=== PATIENT | male | born 1930 | race Caucasian/White ===

== ENCOUNTER 2018-10-27 12:43 | Inpatient (IN) | payer OTHER | END 2018-10-29 18:14 | disposition home or self-care (01) | LOC: JER 12:43 → JERBED 17:47 → J6S 20:53 ==

== ENCOUNTER 2018-12-16 21:11 | Emergency (ER) | payer OTHER ==
--- NOTE | 2018-12-16 21:19 | PDOC ---
Rapid Medical Evaluation Time Seen by Provider: 12/16/18 21:17 Medical Evaluation: Allergies Allergy/AdvReac Type Severity Reaction Status Date / Time No Known Allergies Allergy Verified 10/27/18 12:55 12/16/18 21:17 HPI:Hit in R eye with a piece of wood PE: R eye injected and swollen ORDES: CT for possible globe rupture Discharge Disposition - Diagnosis Right eye injury - Referrals Referrals: Iván Rodriguez MD [Primary Care Provider] - - Patient Instructions - Post Discharge Activity
[2018-12-16 21:20] VITALS: BMI 24.1
--- NOTE | 2018-12-16 23:02 | PDOC ---
*Physical Exam - Vital Signs Last Vital Signs Temp Pulse Resp BP Pulse Ox 98.1 F 89 18 161/80 95 12/16/18 21:17 12/16/18 21:17 12/16/18 21:17 12/16/18 21:17 12/16/18 21:17 Medical Decision Making - Medical Decision Making 12/16/18 23:02 Patient seen by the advanced practice provider under my direct supervision. Ancillary testing reviewed as necessary. I agree with plan as outlined by the advanced practice provider. Discharge - Discharge Information Problems reviewed: Yes Clinical Impression/Diagnosis: Blunt trauma, right eye Qualifiers: Encounter type: initial encounter Qualified Code(s): S05.8X1A - Other injuries of right eye and orbit, initial encounter Condition: Fair Disposition: TRANSFER ACUTE CARE/OTHER HOSP - Follow up/Referral Referrals: Iván Rodriguez MD [Primary Care Provider] - - Patient Discharge Instructions - Post Discharge Activity
[2018-12-16] MEDS ORDERED: DIPHTH,PERTUSS(ACELL),TET 0.5 ML DISP.SYRIN IM ONE (23:17)
--- NOTE | 2018-12-16 23:26 | PDOC ---
History of Present Illness - General Chief Complaint: Eye Problem Stated Complaint: RIGHT EYE INJ Time Seen by Provider: 12/16/18 21:17 History Source: Patient, Family (Daughter) Exam Limitations: No Limitations - History of Present Illness Initial Comments: 12/16/18 23:20 HISTORY OF PRESENT ILLNESS: 77-year-old male with past medical history of hypertension, hypercholesterolemia, IDDM of presents emergency department for evaluation of right eye pain status post direct trauma sustained on 12/15. Patient states he was walking around his house where there was some composite decking piled up. He stepped on a piece of the composite decking causing it to launch under the piece of decking striking him in the right eye. Patient denies any floaters, vision loss, blurry vision. Patient concerned with increased pain and appearance of his eye which reveals bloody sclera. Unknown tetanus. No recent travel or sick contacts. PAST MEDICAL HISTORY: see HPI SURGICAL HISTORY: Denies ALLERGIES: No known drug allergies REVIEW OF SYSTEMS General/Constitutional: Denies fever or chills. Denies weakness, weight change. HEENT: see HPI Cardiovascular: Denies chest pain or shortness of breath. Respiratory: Denies cough, wheezing, or hemoptysis. Gastrointestinal: Denies nausea, vomiting, diarrhea or constipation. Denies rectal bleeding. Genitourinary: Denies dysuria, frequency, or change in urination. Musculoskeletal: Denies joint or muscle swelling or pain. Denies neck or back pain. Skin and breasts: Denies rash or easy bruising. Neurologic: Denies headache, vertigo, loss of consciousness, or loss of sensation. Psychiatric: Denies depression or anxiety. Endocrine: Denies increased thirst. Denies abnormal weight change. Hematologic/Lymphatic: Denies anemia, easy bleeding, or history of blood clots. Allergic/Immunologic: Denies hives or skin allergy. Denies latex allergy. PHYSICAL EXAM General Appearance: Well-appearing, appropriately dressed. No apparent distress , no intoxication. HEENT: EOMI, PERRLA, normal ENT inspection, normal voice, TMs normal, pharynx normal. No conjunctival pallor. No photophobia. No bony tenderness, crepitus or step-offs present to orbits. Red reflex is unremarkable bilaterally. No obvious extrusion of intraocular contents present. Right eye anterior chamber appears normal. No hyphema is noted. Visual acuity 20/20 right eye, left eye, both eyes. Swelling and hematoma present to the right sclera. Fluorescein staining deferred until after results of CAT scan have been obtained. Neck: Supple. Trachea midline. No tenderness, rigidity, carotid bruit, stridor , lymphadenopathy, or thyromegaly. Respiratory/Chest: Lungs CTAB. No shortness of breath, chest tenderness, respiratory distress, accessory muscle use. No crackles, rales, rhonchi, stridor , wheezing, dullness Cardiovascular: RRR. S1, S2. No JVD, murmur, bradycardia, tachycardia. Vascular Pulses: Dorsalis-Pedis (R): 2+, Dorsalis-Pedis (L): 2+ Neurologic: work environment safety inspector II-XII intact. Fully oriented, alert. Appropriate mood/affect. Motor strength 5/5. No appreciable EOM palsy, facial droop or sensory deficit. Is this a multiple visit Asthma Patient?: No Past History - Past Medical History Allergies/Adverse Reactions: Allergies Allergy/AdvReac Type Severity Reaction Status Date / Time No Known Allergies Allergy Verified 12/16/18 21:20 Home Medications: Ambulatory Orders Amlodipine Besylate 5 mg PO DAILY 10/27/18 Atorvastatin Ca [Lipitor] 80 mg PO HS 10/27/18 Cilostazol 100 mg PO BID 10/27/18 Clopidogrel Bisulfate [Clopidogrel] 75 mg PO DAILY 10/27/18 Finasteride 5 mg PO DAILY 10/27/18 Gabapentin 300 mg PO TID 10/27/18 Insulin Detemir [Levemir Flextouch] 50 unit SQ BID 10/27/18 Tamsulosin HCl 0.8 mg PO DAILY 10/27/18 Metoprolol Tartrate 50 mg PO BID 10/28/18 Cefuroxime Axetil [Ceftin -] 250 mg PO BID #10 tablet 10/29/18 COPD: No Diabetes: Yes HTN: Yes Hypercholesterolemia: Yes - Immunization History Immunization Up to Date: Yes - Psycho Social/Smoking Cessation Hx Smoking History: Never smoked Have you smoked in the past 12 months: No Hx Alcohol Use: No Drug/Substance Use Hx: No Substance Use Type: None Hx Substance Use Treatment: No *Physical Exam - Vital Signs Last Vital Signs Temp Pulse Resp BP Pulse Ox 98.1 F 89 18 161/80 95 12/16/18 21:17 12/16/18 21:17 12/16/18 21:17 12/16/18 21:17 12/16/18 21:17 Medical Decision Making - Medical Decision Making 12/16/18 23:26 A/P: 87-year-old male for evaluation of right eye pain status post direct trauma Differential diagnosis includes but is not limited to-globe rupture, corneal abrasion, subconjunctival hemorrhage, CAT scan per rapid medical evaluation Fluorescein staining deferred until after results of CAT scan have been received [employer] Patient and family are made aware potential need for emergent ophthalmologic evaluation at tertiary hospital pending results of CT scan. 12/17/18 00:12 CT of the facial bones as read by Dr. Shaffer: Both orbits are intact. Both globes are intact. Air is present along the superior margin of the right eye globe within the extraconal compartment. Ophthalmology evaluation is needed. I will contact [facility] for ophthalmologic evaluation and transfer. Spoke with Dr. serna of ophthalmology a wishes to [facility] with exception patient transferred to the emergency department. Patient was accepted 12/17/18 at 12 AM. The receiving facility will arrange transportation. Patient is aware of pending transfer and need for ophthalmologic evaluation. Discharge - Discharge Information Problems reviewed: Yes Clinical Impression/Diagnosis: Blunt trauma, right eye Qualifiers: Encounter type: initial encounter Qualified Code(s): S05.8X1A - Other injuries of right eye and orbit, initial encounter Condition: Fair Disposition: TRANSFER ACUTE CARE/OTHER HOSP - Admission No - Follow up/Referral Referrals: Iván Rodriguez MD [Primary Care Provider] - - Patient Discharge Instructions - Post Discharge Activity - Transfer to Acute Care Facility Receiving Facility Name: [facility] Accepting Physician:: Ubaldo @[address] [place] [address]
[2018-12-17 01:21] VITALS: BP 147/59; PULSE 77; TEMP 98.2
== END 2018-12-17 00:45 | disposition short-term general hospital (02) ==
LOC: JER 21:11
PROC: 3E0234Z Introduction of Serum, Toxoid and Vaccine into Muscle, Percutaneous Approach (ICD-10-PCS; principal; 2018-12-16)
DX: S05.8X1A Other injuries of right eye and orbit, initial encounter (principal); W22.8XXA Striking against or struck by other objects, initial encounter; Y93.89 Activity, other specified; Y92.018 Other place in single-family (private) house as the place of occurrence of the external cause; Y99.8 Other external cause status; I10 Essential (primary) hypertension; E78.00 Pure hypercholesterolemia, unspecified; E11.9 Type 2 diabetes mellitus without complications; Z79.4 Long term (current) use of insulin
CPT/HCPCS: 70486-TC; 90715; 99283-25

== ENCOUNTER 2019-04-03 13:20 | Inpatient (IN) | payer OTHER ==
[2019-04-03] MEDS ORDERED: ACETAMINOPHEN 1000 MG/100 ML VIAL (NON FORMULARY) IVPB ONE (14:28)
[2019-04-03] MEDS ORDERED: ACETAMINOPHEN 325 MG TABLET (FP) ONE (14:29)
--- NOTE | 2019-04-03 14:32 | PDOC ---
History of Present Illness - General Chief Complaint: Pain Stated Complaint: WEAK/PAIN/UTI Time Seen by Provider: 04/03/19 14:15 - History of Present Illness Initial Comments: 04/03/19 15:12 The patient is an 88 year old male with a history of HTN, HLD, DM, Recurrent UTIs who presents for evaluation of dysuria and abdominal pain. The patient is accompanied by family who assist in providing the history. They report that the patient is currently being treated for an upper lobe pneumonia with levaquin that was diagnosed 1 week ago. They note that over the past 1-2 days, the patient has been experiencing worsening dysuria and lower abdominal pain similar to prior UTIs prompting his presentation to the ED for further evaluation. They otherwise deny fevers, chills, chest pain, nausea, vomiting, or changes with urination or bowel movements. Past History - Past Medical History Allergies/Adverse Reactions: Allergies Allergy/AdvReac Type Severity Reaction Status Date / Time No Known Allergies Allergy Verified 12/16/18 21:20 Home Medications: Ambulatory Orders Amlodipine Besylate 5 mg PO DAILY 10/27/18 Atorvastatin Ca [Lipitor] 80 mg PO HS 10/27/18 Cilostazol 100 mg PO BID 10/27/18 Clopidogrel Bisulfate [Clopidogrel] 75 mg PO DAILY 10/27/18 Finasteride 5 mg PO DAILY 10/27/18 Gabapentin 300 mg PO TID 10/27/18 Insulin Detemir [Levemir Flextouch] 15 unit SQ AM 10/27/18 Tamsulosin HCl 0.4 mg PO BID 10/27/18 Metoprolol Tartrate 50 mg PO BID 10/28/18 Insulin Detemir [Levemir Flextouch] 25 unit SQ HS 04/04/19 COPD: No Diabetes: Yes HTN: Yes Hypercholesterolemia: Yes - Immunization History Immunization Up to Date: Yes - Psycho Social/Smoking Cessation Hx Smoking History: Never smoked Have you smoked in the past 12 months: No Information on smoking cessation initiated: No Hx Alcohol Use: No Drug/Substance Use Hx: No Substance Use Type: None Hx Substance Use Treatment: No Review of Systems - Review of Systems Comments:: 04/03/19 15:14 Constitutional: No fevers, chills, fatigue, malaise HEENT: No Rhinorrhea, nasal congestion, visual changes Cardiovascular: No chest pain, syncope, palpitations, lightheadedness Respiratory: Cough, No SOB, Hemoptysis, Gastrointestinal: Lower abdominal pain. No Nausea, Vomiting, Constipation, Diarrhea, Melena Genitourinary: Dysuria. No Frequency, Urgency, Hesitancy, Hematuria, Flank pain Musculoskeletal: No Myalgia, arthralgia Skin: No rashes, itching, bruising, pallor Neurologic: No Headache, Dizziness, Numbness, Weakness, or Tingling Psychiatric: No Hallucinations. No SI or HI *Physical Exam - Vital Signs Last Vital Signs Temp Pulse Resp BP Pulse Ox 98.5 F 117 H 16 132/78 95 04/03/19 13:34 04/03/19 13:34 04/03/19 13:34 04/03/19 13:34 04/03/19 13:34 - Physical Exam 04/03/19 15:15 General Appearance: Nourished. No Apparent Distress HEENT: No Pharyngeal Erythema, Tonsillar Exudate, Tonsillar Erythema Neck: No Cervical Lymphadenopathy Respiratory/Chest: Bilateraly rhonchi noted on exam. No Crackles, Rales, Wheezing Cardiovascular: Regular Rhythm, Regular Rate. No Murmur, Gallops, Rubs Gastrointestinal/Abdominal: Normal Bowel Sounds, Soft. Suprapubic tenderness to palpation on exam. No Guarding, Rebound, Musculoskeletal: No CVA Tenderness Extremity: Normal Capillary Refill Integumentary: Normal Color, Dry, Warm Neurologic: Fully Oriented, Alert, Normal Mood/Affect, Normal Response ED Treatment Course - LABORATORY CBC & Chemistry Diagram: 04/04/19 06:00 04/04/19 06:00 Medical Decision Making - Medical Decision Making 04/03/19 15:16 The patient is an 88 year old male with a history of HTN, HLD, DM, Recurrent UTIs who presents for evaluation of dysuria and abdominal pain. Given the patient's history and physical exam, we will obtain a cbc, cmp, ua, chest plain film, influenza swab, urine culture to evaluate further. We will treat with tylenol and continue to monitor and reassess while here in the ED. 04/03/19 18:23 CBC demonstrated a wbc to 11. CMP was unremarkable. Chest plain film demonstrated right mid lobe and left lower lobe changes as read by our radiologist. The patient reports persistent cough and shortness of breath despite treatment with levaquin. It is likely the patient has failed outpatient management of his pneumonia and he will require admission for further monitoring and management. Discharge - Discharge Information Problems reviewed: Yes Clinical Impression/Diagnosis: Pneumonia Qualifiers: Pneumonia type: due to unspecified organism Laterality: unspecified laterality Lung location: unspecified part of lung Qualified Code(s): J18.9 - Pneumonia, unspecified organism UTI (urinary tract infection) Qualifiers: Urinary tract infection type: site unspecified Hematuria presence: without hematuria Qualified Code(s): N39.0 - Urinary tract infection, site not specified Condition: Stable - Admission Yes - Follow up/Referral - Patient Discharge Instructions - Post Discharge Activity
[2019-04-03] MEDS ORDERED: ACETAMINOPHEN INJECTION 100 ML IVPB ONE (14:34)
[2019-04-03] MEDS ORDERED: ALBUTEROL SO4 2.5/IPRATROPIUM 0.5 INH SOL 3 ML VIAL.NEB. NEB ONE (15:35)
[2019-04-03 16:00] LABS: BASO % 0.2 % (0-2.0); EOS % 0.7 % (0-4.5); HEMATOCRIT 34.1 % (35.4-49); HEMOGLOBIN 11.2 GM/dL (11.7-16.9); LYMPH % 6.6 % (8-40); MCH 30.6 pg (25.7-33.7); MCHC 32.8 g/dl (32.0-35.9); MEAN CELL VOLUME 93.2 fl (80-96); MEAN PLT VOLUME 7.1 fl (7.5-11.1); MONO % 6.4 % (3.8-10.2); NEUT % 86.1 % (42.8-82.8); PLATELET COUNT 473 K/MM3 (134-434); RBC 3.66 M/mm3 (4.00-5.60); RDW 13.4 % (11.9-15.9); WHITE BLOOD COUNT 11.5 K/mm3 (4.0-10.0)
[2019-04-03 16:24] LABS: ALBUMIN 2.2 g/dl (3.4-5.0); BILIRUBIN,TOTAL 0.4 mg/dL (0.2-1); BLOOD UREA NITROGEN 33.9 mg/dL (7-18); CALCIUM 8.5 mg/dL (8.5-10.1); CREATININE 1.9 mg/dL (0.55-1.3); POTASSIUM 3.9 mmol/L (3.5-5.1); TOT PROT 7.4 g/dl (6.4-8.2)
[2019-04-03] MEDS ORDERED: AZITHROMYCIN IVPB 500 MG in DEXTROSE 5%-WATER - 250 ML IVPB ONE (16:28)
[2019-04-03] MEDS ORDERED: CEFTRIAXONE 1 GM in DEXTROSE 5%-WATER - 50 ML IVPB ONE (16:28)
--- NOTE | 2019-04-03 16:34 | PDOC ---
Documentation entered by Virginia Summers SCRIBE, acting as scribe for Ally Narvaez MD. Ally Narvaez MD: This documentation has been prepared by the Kristopher benson Xhesika, SCRIBE, under my direction and personally reviewed by me in its entirety. I confirm that the documentation accurately reflects all work, treatment, procedures, and medical decision making performed by me. Attending Attestation - Resident Resident Name: Curry Arambula - HPI HPI: 04/03/19 15:35 The patient is an 88 year old male with a significant PMH of HTN, HLD, DM, Recurrent UTIs who presents to the emergency department for 2 days of dysuria, abdominal pain and cough with phlegm. Pt is Mont[place] speaking, however, family at bedside providing history. Family states the patient is currently on abx for R Lung pneumonia that was diagnosed at urgent care 03/26/18. Pt states his symptoms are similar to his past UTIs. The patient denies chest pain, shortness of breath, headache and dizziness. Denies fever, chills, vomiting, diarrhea and constipation. Denies frequency, urgency and hematuria. Allergies: NKDA - Physicial Exam PE: 04/03/19 15:43 Agree with resident exam. Patient is alert and oriented and in no acute distress. CV: rrr no murmur. Pulm: + diffuse rhonchi. speaking in complete sentences. Abdomen: soft, non tender, non distended, without guarding or rebound. 04/03/19 16:20 - Medical Decision Making 04/03/19 16:31 Pt presents to the ED complaining of dysuria and continued cough and shortness of breath after treated with levaquin for PNA. + PNA on CXR. Will admit and treat with IV antibiotics secondary to failure of outpatient treatment. Will check UA to evaluate for UTI.
[2019-04-03] MEDS ORDERED: CEFTRIAXONE 1 GM/50 ML BAG ONE (17:05)
[2019-04-03] MEDS ORDERED: AZITHROMYCIN IVPB 500 MG/250 ML BAG IVPB ONE (17:07)
[2019-04-03] MEDS ORDERED: ALBUTEROL SO4 0.5 % INH SOLN 2.5 MG/0.5 ML VIAL.NEB. NEB PRN (19:54)
[2019-04-03 20:31] LABS: EPI CELLS 2.6 /HPF (0-5/HPF); HYALINE CASTS 6 /lpf (0-8); PH,URINE 5.5 (5.0-8.0); URINE APPEARANCE TURBID; URINE BACTERIA 5.9 /hpf (NEGATIVE); URINE BILIRUBIN NEGATIVE (NEGATIVE); URINE COLOR YELLOW; URINE GLUCOSE (UA) 1+ (NEGATIVE); URINE KETONE NEGATIVE (NEGATIVE); URINE LEUK ESTERASE 3+ (NEGATIVE); URINE NITRITE NEGATIVE (NEGATIVE); URINE PROTEIN 3+ (NEGATIVE); URINE RBC 35 /hpf (0-4); URINE UROBILINOGEN 0.2 mg/dL (0.2-1.0); URINE WBC 1195 /hpf (0-5)
--- NOTE | 2019-04-03 22:37 | HP ---
CHIEF COMPLAINT: abdominal pain, cough PCP: HISTORY OF PRESENT ILLNESS: The patient is an 88 yo m w/ PMH HTN, HLD, DM, Recurrent UTIs who comes into the ED c/o dysuria and abdominal pain. The history was collected with the aid of family at bedside. Patient states that he was diagnosed with an upper lobe pneumonia approx. 1 weeks ago and has been on daily Levaquin since then. Over the past 2 days, the patient describes gradually worsening lower abdominal pain and dysuria which is consistent with his episodes of UTI. This is accompanied with persistence of his cough despite 1 week of levaquin. patient denies fevers , chills, chest pain, nausea, vomiting, or changes with urination or bowel movements. In the ED, the patient was afebrile and hemodynamically stable. A CXR demonstrated a pneumonia. UA was indicative of UTI Recent Travel: none PAST MEDICAL HISTORY: see hpi PAST SURGICAL HISTORY: Social History: Smoking: denies Alcohol: denies Drugs: denies Allergies No Known Allergies Allergy (Verified 12/16/18 21:20) HOME MEDICATIONS: Home Medications Medication Instructions Recorded Amlodipine Besylate 5 mg PO DAILY 10/27/18 Atorvastatin Ca [Lipitor] 80 mg PO HS 10/27/18 Cilostazol 100 mg PO BID 10/27/18 Clopidogrel Bisulfate [Clopidogrel] 75 mg PO DAILY 10/27/18 Finasteride 5 mg PO DAILY 10/27/18 Gabapentin 300 mg PO TID 10/27/18 Insulin Detemir [Levemir Flextouch] 50 unit SQ BID 10/27/18 Tamsulosin HCl 0.8 mg PO DAILY 10/27/18 Metoprolol Tartrate 50 mg PO BID 10/28/18 Cefuroxime Axetil [Ceftin -] 250 mg PO BID #10 tablet 10/29/18 REVIEW OF SYSTEMS CONSTITUTIONAL: Absent: fever, chills, diaphoresis, generalized weakness, malaise, loss of appetite, weight change HEENT: Absent: rhinorrhea, nasal congestion, throat pain, throat swelling, difficulty swallowing, mouth swelling, ear pain, eye pain, visual changes CARDIOVASCULAR: Absent: chest pain, syncope, palpitations, irregular heart rate, lightheadedness , peripheral edema RESPIRATORY: Absent: cough, shortness of breath, dyspnea with exertion, orthopnea, wheezing, stridor, hemoptysis GASTROINTESTINAL: Absent: abdominal distension, nausea, vomiting, diarrhea, constipation, melena, hematochezia GENITOURINARY: Absent: urgency, hematuria, flank pain MUSCULOSKELETAL: Absent: myalgia, arthralgia, joint swelling, back pain, neck pain SKIN: Absent: rash, itching, pallor HEMATOLOGIC/IMMUNOLOGIC: Absent: easy bleeding, easy bruising, lymphadenopathy, frequent infections ENDOCRINE: Absent: unexplained weight gain, unexplained weight loss, heat intolerance, cold intolerance NEUROLOGIC: Absent: headache, focal weakness or paresthesias, dizziness, unsteady gait, seizure, mental status changes, bladder or bowel incontinence PSYCHIATRIC: Absent: anxiety, depression, suicidal or homicidal ideation, hallucinations. PHYSICAL EXAMINATION Vital Signs - 24 hr 04/03/19 13:34 Temperature 98.5 F Pulse Rate 117 H Respiratory 16 Rate Blood Pressure 132/78 O2 Sat by Pulse 95 Oximetry (%) GENERAL: Awake, alert, and fully oriented, in no acute distress. HEAD: Normal with no signs of trauma. NECK: Normal range of motion, supple without lymphadenopathy, JVD, or masses. LUNGS: Breath sounds equal, clear to auscultation bilaterally. No wheezes, and no crackles. No accessory muscle use. HEART: Regular rate and rhythm, normal S1 and S2 without murmur, rub or gallop. ABDOMEN: Soft, not distended, normoactive bowel sounds. Patient tender to palpation in the lower quadrants as well as in the suprapubic region LOWER EXTREMITIES: 2+ pulses, warm, well-perfused. No calf tenderness. No peripheral edema. NEUROLOGICAL: Cranial nerves II-X intact. Normal speech. SKIN: Warm, dry, normal turgor, no rashes or lesions noted, normal capillary refill. Laboratory Results - last 24 hr 04/03/19 04/03/19 04/03/19 15:00 15:00 20:15 WBC 11.5 H RBC 3.66 L Hgb 11.2 L Hct 34.1 L MCV 93.2 MCH 30.6 MCHC 32.8 RDW 13.4 Plt Count 473 H D MPV 7.1 L Absolute Neuts (auto) 9.9 H Neutrophils % 86.1 H Lymphocytes % 6.6 L D Monocytes % 6.4 Eosinophils % 0.7 Basophils % 0.2 Nucleated RBC % 0 Sodium 136 Potassium 3.9 Chloride 108 H Carbon Dioxide 19 L Anion Gap 9 BUN 33.9 H Creatinine 1.9 H Est GFR (CKD-EPI)AfAm 36.19 Est GFR (CKD-EPI)NonAf 31.23 Random Glucose 319 H Calcium 8.5 Total Bilirubin 0.4 AST 20 ALT 23 Alkaline Phosphatase 154 H Total Protein 7.4 Albumin 2.2 L Lipase 206 Urine Color Yellow Urine Appearance Turbid Urine pH 5.5 Ur Specific [place] 1.013 Urine Protein 3+ H Urine Glucose (UA) 1+ H Urine Ketones Negative Urine Blood 2+ H Urine Nitrite Negative Urine Bilirubin Negative Urine Urobilinogen 0.2 Ur Leukocyte Esterase 3+ H Urine WBC (Auto) 1195 Urine RBC (Auto) 35 Urine Casts (Auto) 6 U Epithel Cells (Auto) 2.6 Urine Bacteria (Auto) 5.9 Influenza A (Rapid) Influenza B (Rapid) 04/03/19 20:15 WBC RBC Hgb Hct MCV MCH MCHC RDW Plt Count MPV Absolute Neuts (auto) Neutrophils % Lymphocytes % Monocytes % Eosinophils % Basophils % Nucleated RBC % Sodium Potassium Chloride Carbon Dioxide Anion Gap BUN Creatinine Est GFR (CKD-EPI)AfAm Est GFR (CKD-EPI)NonAf Random Glucose Calcium Total Bilirubin AST ALT Alkaline Phosphatase Total Protein Albumin Lipase Urine Color Urine Appearance Urine pH Ur Specific [place] Urine Protein Urine Glucose (UA) Urine Ketones Urine Blood Urine Nitrite Urine Bilirubin Urine Urobilinogen Ur Leukocyte Esterase Urine WBC (Auto) Urine RBC (Auto) Urine Casts (Auto) U Epithel Cells (Auto) Urine Bacteria (Auto) Influenza A (Rapid) Negative Influenza B (Rapid) Negative ASSESSMENT/PLAN: The patient is an 88 yo m w/ PMH HTN, HLD, DM, Recurrent UTIs who comes into the ED c/o dysuria and abdominal pain. #persistent cough despite outpatient treatment -s/p 1week levaquin -patient not improving on above treatment, will broaden coverage with cefepime 2g bid and vancomycin 1g daily -ID consult -sputum culture -urine for pna antigens -blood culture -ct chest r/o empyema/abscess #lower abdominal pain 2/2 uti vs acute prostatitis -patient w/ dysuria -UA shows UTI -abx as above -urology consult -bladder scan #DM -BGM ACHS -ISS ACHS #FEN -no fuids indicated -lytes wnl -DM diet #prophy -HSQ #Dispo -admit med surg Visit type - Emergency Visit Emergency Visit: Yes ED Registration Date: 04/03/19 Care time: The patient presented to the Emergency Department on the above date and was hospitalized for further evaluation of their emergent condition. - New Patient This patient is new to me today: Yes Date on this admission: 04/04/19 - Critical Care Critical Care patient: No ATTENDING PHYSICIAN STATEMENT I saw and evaluated the patient. I reviewed the resident's note and discussed the case with the resident. I agree with the resident's findings and plan as documented. SUBJECTIVE: OBJECTIVE: ASSESSMENT AND PLAN:
[2019-04-03] MEDS ORDERED: CEFEPIME HCL/D5W 1 GM/50 ML BAG IVPB SCH (22:45)
[2019-04-03] MEDS ORDERED: CEFAZOLIN 1 GM in DEXTROSE 5%-WATER - 50 ML IVPB SCH (22:45)
[2019-04-03] MEDS ORDERED: VANCOMYCIN 1 GRAM (PRE-DOCKED) 1,000 MG/250 ML BAG IVPB ONE (22:45)
--- NOTE | 2019-04-03 23:12 | PN ---
Teaching Attending Note Name of Resident: Popeye Marrufo ATTENDING PHYSICIAN STATEMENT I saw and evaluated the patient. I reviewed the resident's note and discussed the case with the resident. I agree with the resident's findings and plan as documented. SUBJECTIVE: 88 year old male with a significant PMH of BPH, HTN, HLD, DM, Recurrent UTIs Presents complaining of 2 days of dysuria, abdominal pain/Suprapubic pain, cough with phlegm. Patient is undergoing 5 days of Levaquin treatment for right lung pneumonia, diagnosed at urgent care on 03/26/2019. Respiratory symptoms have not improved fully after Levaquin treatment. OBJECTIVE: Last Vital Signs Temp Pulse Resp BP Pulse Ox 98.5 F 83 18 155/72 98 04/03/19 22:42 04/03/19 22:42 04/03/19 22:42 04/03/19 22:42 04/03/19 22:42 GENERAL: Well developed, well nourished. Awake and alert. No acute distress. HEENT: Normocephalic, atraumatic. PERRLA, EOMI. No conjunctival pallor. Sclera are non- icteric. Moist mucous membranes. Oropharynx is clear. NECK: Supple. Full ROM. No JVD. Carotid pulses 2+ and symmetric, without bruits. No thyromegaly. No lymphadenopathy. CARDIOVASCULAR: Regular rate and rhythm. No murmurs, rubs, or gallops. Distal pulses are 2+ and symmetric. PULMONARY: No evidence of respiratory distress. Lungs clear to auscultation bilaterally. No wheezing, rales or rhonchi. ABDOMINAL: Soft. Non-tender. Non-distended. No rebound or guarding. No organomegaly. Normoactive bowel sounds. MUSCULOSKELETAL Normal range of motion at all joints. No bony deformities or tenderness. No CVA tenderness. EXTREMITIES: No cyanosis. No clubbing. No edema. No calf tenderness. SKIN: Warm and dry. Normal capillary refill. No rashes. No jaundice. PSYCHIATRIC: Cooperative. Good eye contact. Appropriate mood and affect. Abnormal Lab Results 04/03/19 04/03/19 04/03/19 15:00 15:00 20:15 WBC 11.5 H RBC 3.66 L Hgb 11.2 L Hct 34.1 L Plt Count 473 H D MPV 7.1 L Absolute Neuts (auto) 9.9 H Neutrophils % 86.1 H Lymphocytes % 6.6 L D Chloride 108 H Carbon Dioxide 19 L BUN 33.9 H Creatinine 1.9 H Random Glucose 319 H Alkaline Phosphatase 154 H Albumin 2.2 L Urine Protein 3+ H Urine Glucose (UA) 1+ H Urine Blood 2+ H Ur Leukocyte Esterase 3+ H Imaging studies reviewed ASSESSMENT AND PLAN: 88-year-old man with persistent pneumonia despite Levaquin treatment, suspect possible antibiotic failure versus resistant organisms at this time and would upgrade antibiotic coverage from Levaquin to vancomycin and cefepime. ADILENE on CKD. Complicated UTI suspect may be cystitis versus prostatitis in this patient with history of BPH and frequent UTIs. Cefepime would likely cover UTI as well as with pneumonia.History of significant BPH likely may be culprit for frequent UTIs. Would obtain pre-and post void bladder scan at this time. Admit to [facility] Urine culture Blood cultures x2 Urine Legionella antigen Sputum culture Chest CT without contrast to evaluate for structural chest abnormalities which might explain antibiotic failure such as a loculated fluid collection Cefepime 1 g IV every 12 Vancomycin 1 g IV stat Random vancomycin level in a.m. Supplemental oxygen via nasal cannula as needed Respiratory watch infectious disease consultation Renal sonogram I's and O's Daily weights Calculate Fena Avoid unnecessary nephrotoxins such as NSAIDs and contrast for CT #Abdominal pain with elevated alk phosshould rule out cholecystitis Right upper quadrant ultrasound to rule out cholecystitis #Severe hypoalbuminemia #Thrombocytosissuspect reactive #Anemia #Diabetes mellitus with severely uncontrolled hyperglycemia NovoLog sliding scale A1c Basal insulin #DVT prophylaxisheparin subcutaneously
[2019-04-04] MEDS ORDERED: guaiFENesin/D-M SUGAR-FREE/ACLHOL-FREE 118 ML BOTTLE PO PRN (03:21)
[2019-04-04] MEDS: ACETAMINOPHEN 325 MG TABLET (FP) PO PRN ×2 (04:11→18:41)
[2019-04-04] MEDS ORDERED: guaiFENesin 200 MG/10 ML 10 ML UNIT-DOSE CUPS PO PRN (04:27)
[2019-04-04] MEDS ORDERED: INSULIN SLIDING SCALE (NOVOLOG) 1 VIAL SQ SCH (07:00)
[2019-04-04] MEDS: HEPARIN NA (PORCINE) 5,000 UNITS/ML 1ML VIAL SQ SCH ×3 (07:10→22:43)
[2019-04-04 07:24] LABS: ALBUMIN 1.9 g/dl (3.4-5.0); BILIRUBIN,TOTAL 0.5 mg/dL (0.2-1); BLOOD UREA NITROGEN 28.8 mg/dL (7-18); CALCIUM 8.1 mg/dL (8.5-10.1); CREATININE 1.8 mg/dL (0.55-1.3); MAGNESIUM 1.8 mg/dL (1.8-2.4); PHOSPHOROUS 2.8 mg/dL (2.5-4.9); POTASSIUM 3.8 mmol/L (3.5-5.1); TOT PROT 6.6 g/dl (6.4-8.2)
[2019-04-04 07:38] LABS: HEMATOCRIT 30.3 % (35.4-49); HEMOGLOBIN 10.3 GM/dL (11.7-16.9); MCH 31.1 pg (25.7-33.7); MCHC 33.9 g/dl (32.0-35.9); MEAN CELL VOLUME 91.8 fl (80-96); MEAN PLT VOLUME 6.9 fl (7.5-11.1); PLATELET COUNT 408 K/MM3 (134-434); WHITE BLOOD COUNT 7.7 K/mm3 (4.0-10.0)
[2019-04-04 07:42] LABS: INR 1.43 (0.83-1.09); PROTHROMBIN TIME (PATIENT) 16.9 SEC (9.7-13.0)
--- NOTE | 2019-04-04 09:23 | PN ---
Physical Exam: SUBJECTIVE: Patient seen and examined, pt still c/o dysuria,moist cough,sob with exertion, generalized abdominal pain, denies cp,palpitations,N/V/D or hematuria. OBJECTIVE: Vital Signs Period Temp Pulse Resp BP Sys/Riggs Pulse Ox Last 24 Hr 97.8 F-98.5 F 83-117 16-20 132-163/72-80 95-98 GENERAL: The patient is awake, alert, and fully oriented, in no acute distress. HEAD: Normal with no signs of trauma. EYES: PERRL, extraocular movements intact, sclera anicteric, conjunctiva clear. No ptosis. ENT: Ears normal, nares patent, oropharynx clear without exudates, moist mucous membranes.Swelling left side of the face persist, mild- tenderness, no throat exudate seen NECK: Trachea midline, full range of motion, supple. LUNGS: Breath sounds equal, rales/ ronchi, no wheezing no accessory muscle use. HEART: Regular rate and rhythm, S1, S2 without murmur, rub or gallop. ABDOMEN: mild epigastric tenderness,Soft, nondistended, normoactive bowel sounds , no guarding, no rebound, no hepatosplenomegaly, no masses. EXTREMITIES: 2+ pulses, warm, well-perfused, no edema. NEUROLOGICAL: Cranial nerves II through XII grossly intact. Normal speech, gait not observed. PSYCH: Normal mood, normal affect. SKIN: Warm, dry, normal turgor, no rashes or lesions noted Laboratory Results - last 24 hr 04/03/19 04/03/19 04/03/19 15:00 15:00 20:15 WBC 11.5 H RBC 3.66 L Hgb 11.2 L Hct 34.1 L MCV 93.2 MCH 30.6 MCHC 32.8 RDW 13.4 Plt Count 473 H D MPV 7.1 L Absolute Neuts (auto) 9.9 H Neutrophils % 86.1 H Lymphocytes % 6.6 L D Monocytes % 6.4 Eosinophils % 0.7 Basophils % 0.2 Nucleated RBC % 0 PT with INR INR Sodium 136 Potassium 3.9 Chloride 108 H Carbon Dioxide 19 L Anion Gap 9 BUN 33.9 H Creatinine 1.9 H Est GFR (CKD-EPI)AfAm 36.19 Est GFR (CKD-EPI)NonAf 31.23 POC Glucometer Random Glucose 319 H Calcium 8.5 Phosphorus Magnesium Total Bilirubin 0.4 AST 20 ALT 23 Alkaline Phosphatase 154 H Total Protein 7.4 Albumin 2.2 L Lipase 206 Urine Color Yellow Urine Appearance Turbid Urine pH 5.5 Ur Specific Chalmers 1.013 Urine Protein 3+ H Urine Glucose (UA) 1+ H Urine Ketones Negative Urine Blood 2+ H Urine Nitrite Negative Urine Bilirubin Negative Urine Urobilinogen 0.2 Ur Leukocyte Esterase 3+ H Urine WBC (Auto) 1195 Urine RBC (Auto) 35 Urine Casts (Auto) 6 U Epithel Cells (Auto) 2.6 Urine Bacteria (Auto) 5.9 Influenza A (Rapid) Influenza B (Rapid) 04/03/19 04/04/19 04/04/19 20:15 06:00 06:00 WBC 7.7 RBC 3.30 L Hgb 10.3 L Hct 30.3 L MCV 91.8 MCH 31.1 MCHC 33.9 RDW 13.0 Plt Count 408 MPV 6.9 L Absolute Neuts (auto) Neutrophils % Lymphocytes % Monocytes % Eosinophils % Basophils % Nucleated RBC % PT with INR 16.90 H INR 1.43 H Sodium Potassium Chloride Carbon Dioxide Anion Gap BUN Creatinine Est GFR (CKD-EPI)AfAm Est GFR (CKD-EPI)NonAf POC Glucometer Random Glucose Calcium Phosphorus Magnesium Total Bilirubin AST ALT Alkaline Phosphatase Total Protein Albumin Lipase Urine Color Urine Appearance Urine pH Ur Specific Chalmers Urine Protein Urine Glucose (UA) Urine Ketones Urine Blood Urine Nitrite Urine Bilirubin Urine Urobilinogen Ur Leukocyte Esterase Urine WBC (Auto) Urine RBC (Auto) Urine Casts (Auto) U Epithel Cells (Auto) Urine Bacteria (Auto) Influenza A (Rapid) Negative Influenza B (Rapid) Negative 04/04/19 04/04/19 06:00 07:07 WBC RBC Hgb Hct MCV MCH MCHC RDW Plt Count MPV Absolute Neuts (auto) Neutrophils % Lymphocytes % Monocytes % Eosinophils % Basophils % Nucleated RBC % PT with INR INR Sodium 137 Potassium 3.8 Chloride 109 H Carbon Dioxide 22 Anion Gap 6 L BUN 28.8 H Creatinine 1.8 H Est GFR (CKD-EPI)AfAm 38.64 Est GFR (CKD-EPI)NonAf 33.34 POC Glucometer 347 Random Glucose 360 H Calcium 8.1 L Phosphorus 2.8 Magnesium 1.8 Total Bilirubin 0.5 AST 19 ALT 21 Alkaline Phosphatase 128 H Total Protein 6.6 Albumin 1.9 L Lipase Urine Color Urine Appearance Urine pH Ur Specific Chalmers Urine Protein Urine Glucose (UA) Urine Ketones Urine Blood Urine Nitrite Urine Bilirubin Urine Urobilinogen Ur Leukocyte Esterase Urine WBC (Auto) Urine RBC (Auto) Urine Casts (Auto) U Epithel Cells (Auto) Urine Bacteria (Auto) Influenza A (Rapid) Influenza B (Rapid) Active Medications Generic Name Dose Route Start Last Admin Trade Name Freq PRN Reason Stop Dose Admin Acetaminophen 650 mg 04/03/19 19:54 04/04/19 04:11 Tylenol - PO 650 mg Q6H PRN Administration FEVER Albuterol Sulfate 1 amp 04/03/19 19:54 Ventolin 0.5% - NEB Q6H PRN SHORT OF BREATH/WHEEZING Guaifenesin 5 ml 04/04/19 04:27 04/04/19 04:36 Robitussin - PO 5 ml Q6H PRN Administration COUGH Heparin Sodium (Porcine) 5,000 unit 04/04/19 06:00 04/04/19 07:10 Heparin - SQ 5,000 unit TID [facility] Administration Vancomycin HCl 1,000 mg in 250 mls @ 166.667 mls/hr 04/04/19 23:00 Vancomycin (Pre-Docked) IVPB DAILY@2300 [facility] Protocol Cefepime HCl 1 gm/ Dextrose 100 mls @ 200 mls/hr 04/04/19 10:00 IVPB 04/04/19 10:29 BID [facility] Protocol Cefepime HCl 1 gm/ Dextrose 100 mls @ 200 mls/hr 04/04/19 22:00 IVPB BID [facility] Protocol Insulin Aspart 1 vial 04/04/19 07:00 04/04/19 07:10 Novolog Vial Sliding Scale - SQ 8 units ACHS [facility] Administration Protocol CXR: Large Heart , some atelecatasis of infiltrate CT chest: Extensive consolidation , R upper, middle and lower lobe, small pericardial effusion, CM, mild mediastinal l ymphadenopathy , no abscess or emphysema noted ASSESSMENT/PLAN: The patient is an 88 year old male with PMH HTN, HLD,CKD, DM,HLD, PAD (s/p bypass at [facility]), Recurrent UTIs who comes into the ED c/o dysuria and abdominal pain. #Persistent cough despite outpatient treatment -s/p 1week Levaquin -will broaden coverage with cefepime 2g bid and vancomycin 1g daily -ID consulted -sputum culture -urine for pna antigens -blood culture not done, already on abx -CT chest: Extensive consolidation , R upper, middle and lower lobe, small pericardial effusion, CM, mild mediastinal l ymphadenopathy - afebrile, mild leukocytosis normalized - Influenza ruled out #Lower abdominal pain 2/2 uti vs acute prostatitis -UA positive - will f/u on urine culture - will cont on abxs -urology consulted -bladder scan PRN - afberile - Renal /pelvic US ordered #DM -FS Ac& HS -ISS - will cont on home dose Lantus - will check Hgb Alc # HTN - will cont on Norvasc and BB # HDL - on Statin # PAD - will cont on home meds # BPH - will cont on Flomax and Fenasteride # CKD - rockyley baseline - will monitor renal functions #FEN: Diabetic heart healthy Diet replace electrolytes as needed #VTE Prophy-HSQ Visit type - Emergency Visit Emergency Visit: Yes ED Registration Date: 04/03/19 Care time: The patient presented to the Emergency Department on the above date and was hospitalized for further evaluation of their emergent condition. - New Patient This patient is new to me today: Yes Date on this admission: 04/04/19 - Critical Care Critical Care patient: No
[2019-04-04] MEDS ORDERED: CEFEPIME HCL 1 GM VIAL (RESTRICTED TO ID) ONE ×2 (09:44→20:27)
[2019-04-04] MEDS ORDERED: PT OWN MED DRAWER 7, Y5N ONE ×2 (09:44→20:27)
[2019-04-04] MEDS ORDERED: DEXTROSE 5%-WATER 100 ML IVPB ONE (09:44)
[2019-04-04] MEDS: FINASTERIDE 5 MG TABLET (FP) PO SCH (09:50)
[2019-04-04] MEDS: METOPROLOL TARTRATE 50 MG TABLET (FP) PO SCH ×2 (09:50→22:37)
[2019-04-04] MEDS: CLOPIDOGREL BISULFATE 75 MG TABLET (FP) PO SCH (09:50)
[2019-04-04] MEDS: amLODIPine BESYLATE 5 MG TABLET (FP) PO SCH (09:51)
[2019-04-04] MEDS ORDERED: AZITHROMYCIN IVPB 250 MG in DEXTROSE 5%-WATER - 250 ML IVPB SCH (10:00)
[2019-04-04] MEDS ORDERED: CEFTRIAXONE 1 GM in DEXTROSE 5%-WATER - 50 ML IVPB SCH (10:00)
[2019-04-04] MEDS ORDERED: CEFEPIME 1 GM in DEXTROSE 5%-WATER 100 ML IVPB SCH ×2 (10:00→22:00)
[2019-04-04] MEDS ORDERED: CEFEPIME HCL/D5W 2 GM/50 ML BAG IVPB SCH (10:00)
[2019-04-04] MEDS: CILOSTAZOL 100 MG TABLET PO SCH ×2 (10:39→22:43)
[2019-04-04] MEDS ORDERED: INSULIN (NOVOLOG) ASPART 100 UNITS/ML 10ML VIAL ONE (11:51)
[2019-04-04] MEDS: TAMSULOSIN HCL 0.4 MG CAP PO SCH (11:56)
[2019-04-04] MEDS: INSULIN SLIDING SCALE (NOVOLOG) 1 VIAL SQ SCH ×3 (11:57→22:42)
--- NOTE | 2019-04-04 12:10 | PN ---
Progress Note (short form) - Note Progress Note: ID consult dictated imp/reccd pneumonia UTI s/p one week of levaquin with continued cough suprapubic pain with history of prior UTI cultures ordered urology to evaluate given rocephin/zithromax vancomycin/cefepime will continue cefepime and f/u cultures adjust antibiotics for renal insufficiency renal/bladder sonogram r/o obstruction Problem List - Problems (1) Pneumonia Code(s): J18.9 - PNEUMONIA, UNSPECIFIED ORGANISM Qualifiers: Pneumonia type: due to unspecified organism Laterality: unspecified laterality Lung location: unspecified part of lung Qualified Code(s): J18.9 - Pneumonia, unspecified organism (2) UTI (urinary tract infection) Code(s): N39.0 - URINARY TRACT INFECTION, SITE NOT SPECIFIED Qualifiers: Urinary tract infection type: site unspecified Hematuria presence: without hematuria Qualified Code(s): N39.0 - Urinary tract infection, site not specified (3) Renal insufficiency Code(s): N28.9 - DISORDER OF KIDNEY AND URETER, UNSPECIFIED
--- NOTE | 2019-04-04 13:19 | EKG ---
Test Reason : Blood Pressure : / mmHG Vent. Rate : 104 BPM Atrial Rate : 104 BPM P-R Int : 194 ms QRS Dur : 076 ms QT Int : 328 ms P-R-T Axes : 051 041 036 degrees QTc Int : 431 ms POOR DATA QUALITY, INTERPRETATION MAY BE ADVERSELY AFFECTED SINUS TACHYCARDIA POSSIBLE LEFT ATRIAL ENLARGEMENT BORDERLINE ECG NO PREVIOUS ECGS AVAILABLE Confirmed by DEBORAH GERONIMO MD ([id number]) on 04/04/2019 1:19:11 PM Referred By: Confirmed By:DEBORAH GERONIMO MD
[2019-04-04] MEDS: GABAPENTIN 300 MG CAPSULE (FP) PO SCH ×2 (14:47→22:37)
[2019-04-04] MEDS: ALBUTEROL SO4 0.5 % INH SOLN 2.5 MG/0.5 ML VIAL.NEB. NEB SCH ×2 (16:54→20:26)
--- NOTE | 2019-04-04 18:37 | CONS ---
DATE OF CONSULTATION: DATE OF DICTATION: 04/04/2019 REQUESTED BY: The hospitalist service. This 88-year-old man lives at home with his family. He has a history of hypertension, diabetes. He has had urinary tract infections in the past. He was recently diagnosed with pneumonia and started on Levaquin. He has had a persistent cough for the last week. Over the last 2 days, he has developed some lower abdominal discomfort and dysuria and they brought him in to the ER. There is no history of fevers, chills nausea, vomiting, or diarrhea. In the ER, he had a chest x-ray that showed a right-sided pneumonia. Urinalysis with many white cells. He was given ceftriaxone and Zithromax in the ER, and later on admission was given vancomycin and cefepime. Past medical history is notable for hypertension, hyperlipidemia, diabetes, peripheral arterial disease, and BPH. Surgical history is notable for bypass done at [facility]. 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 SOCIAL HISTORY: Former smoker, quit in the 80s. No alcohol in 30 years. He lives with his family. Family history is notable for father and brother with diabetes. He has no known drug allergies. His medications at home include tamsulosin, metoprolol, insulin, gabapentin, finasteride, Plavix, cilostazol, atorvastatin and amlodipine. He has had [address] [facility] in October of 2018. PHYSICAL EXAMINATION: General: He is a thin man in no acute distress. HEENT: He is normocephalic. His eyes are anicteric. Neck: Supple. Lungs: He has a harsh cough. His lungs have diminished breaths sounds at the bases. Heart: Regular rate and rhythm. Abdomen: Soft, nontender. He has no tenderness at this time. Genitourinary: His urinal has very, very cloudy urine in it. Extremities: Notable for a well-healed right TMA. No skin breakdown of the left foot. He had a CAT scan in October, that showed a markedly enlarged prostate, and a markedly irregular urinary bladder wall. He had a hiatal hernia at that time as well. He now has had a CAT scan of his chest that shows extensive consolidation of the right middle and right lower lobe as well as the left lower lobe. In summary, this is an 88-year-old man with pneumonia, UTI, status post 1 week of Levaquin without any improvement, making it unlikely that he has atypical pneumonia, suprapubic pain, with history of prior UTI. Cultures have been ordered (urine, blood, and sputum). Urology has been asked to see him, as they were unable to place a Lares catheter, and the prior CAT scan findings. He was given Rocephin, Zithromax, vancomycin, and cefepime. Will continue cefepime and follow up cultures. Will adjust antibiotics. For his renal insufficiency, will obtain a renal and bladder ultrasound to rule out obstruction. Further recommendations to follow. Ever [id number]
[2019-04-04] MEDS ORDERED: DEXTROSE 5%-WATER - 50 ML IVPB ONE (20:27)
[2019-04-04] MEDS ORDERED: INSULIN (LEVEMIR) 100 UNITS/ML UNITS SQ SCH (22:00)
[2019-04-04] MEDS: CEFEPIME 1 GM in DEXTROSE 5%-WATER - 50 ML IVPB SCH (22:43)
[2019-04-04] MEDS: ATORVASTATIN CA 80 MG TABLET (FP) PO SCH (22:43)
[2019-04-04] MEDS: PHENAZOPYRIDINE HCL 100 MG TABLET (FP) PO SCH (22:43)
[2019-04-04] MEDS ORDERED: VANCOMYCIN 1 GRAM (PRE-DOCKED) 1,000 MG/250 ML BAG IVPB SCH (23:00)
[2019-04-05] MEDS ORDERED: PT OWN MED DRAWER 7, Y5N ONE ×3 (06:17→21:15)
[2019-04-05] MEDS: PHENAZOPYRIDINE HCL 100 MG TABLET (FP) PO SCH ×3 (06:55→21:55)
[2019-04-05] MEDS: GABAPENTIN 300 MG CAPSULE (FP) PO SCH ×3 (06:55→21:54)
[2019-04-05] MEDS: HEPARIN NA (PORCINE) 5,000 UNITS/ML 1ML VIAL SQ SCH ×3 (06:56→21:20)
[2019-04-05] MEDS ORDERED: INSULIN (LEVEMIR) 100 UNITS/ML UNITS SQ SCH (07:00)
[2019-04-05] MEDS: INSULIN SLIDING SCALE (NOVOLOG) 1 VIAL SQ SCH ×4 (07:01→21:52)
[2019-04-05] MEDS: ALBUTEROL SO4 0.5 % INH SOLN 2.5 MG/0.5 ML VIAL.NEB. NEB SCH ×2 (07:22→15:22)
[2019-04-05] MEDS ORDERED: CEFEPIME HCL 1 GM VIAL (RESTRICTED TO ID) ONE ×2 (08:41→21:04)
[2019-04-05] MEDS ORDERED: DEXTROSE 5%-WATER - 50 ML IVPB ONE ×2 (08:42→21:04)
[2019-04-05 09:06] LABS: BASO % 0.5 % (0-2.0); EOS % 0.9 % (0-4.5); HEMATOCRIT 34.4 % (35.4-49); HEMOGLOBIN 11.9 GM/dL (11.7-16.9); LYMPH % 8.6 % (8-40); MCH 31.7 pg (25.7-33.7); MCHC 34.6 g/dl (32.0-35.9); MEAN CELL VOLUME 91.5 fl (80-96); MEAN PLT VOLUME 6.7 fl (7.5-11.1); MONO % 5.3 % (3.8-10.2); NEUT % 84.7 % (42.8-82.8); PLATELET COUNT 498 K/MM3 (134-434); RBC 3.76 M/mm3 (4.00-5.60); RDW 13.3 % (11.9-15.9); WHITE BLOOD COUNT 10.7 K/mm3 (4.0-10.0)
[2019-04-05] MEDS: METOPROLOL TARTRATE 50 MG TABLET (FP) PO SCH ×2 (09:45→21:54)
[2019-04-05] MEDS: FINASTERIDE 5 MG TABLET (FP) PO SCH (09:45)
[2019-04-05] MEDS: TAMSULOSIN HCL 0.4 MG CAP PO SCH (09:45)
[2019-04-05] MEDS: CLOPIDOGREL BISULFATE 75 MG TABLET (FP) PO SCH (09:45)
[2019-04-05] MEDS: CEFEPIME 1 GM in DEXTROSE 5%-WATER - 50 ML IVPB SCH ×2 (09:45→21:49)
[2019-04-05] MEDS: amLODIPine BESYLATE 5 MG TABLET (FP) PO SCH (09:45)
[2019-04-05] MEDS: CILOSTAZOL 100 MG TABLET PO SCH ×2 (09:46→21:55)
[2019-04-05 10:21] LABS: INR 1.31 (0.83-1.09); PROTHROMBIN TIME (PATIENT) 15.5 SEC (9.7-13.0)
[2019-04-05] MEDS: ACETAMINOPHEN 325 MG TABLET (FP) PO PRN (11:13)
[2019-04-05 11:16] LABS: ALBUMIN 2.3 g/dl (3.4-5.0); BILIRUBIN,TOTAL 0.4 mg/dL (0.2-1); BLOOD UREA NITROGEN 28.9 mg/dL (7-18); CALCIUM 8.7 mg/dL (8.5-10.1); CREATININE 1.8 mg/dL (0.55-1.3); POTASSIUM 3.6 mmol/L (3.5-5.1); TOT PROT 7.6 g/dl (6.4-8.2)
--- NOTE | 2019-04-05 13:29 | PN ---
Progress Note (short form) - Note Progress Note: less cough still with left flank discomfort and suprapubic discomfort Vital Signs Period Temp Pulse Resp BP Sys/Riggs Pulse Ox Last 24 Hr 97.8 F-98.2 F 72-101 18-20 126-148/58-64 96 cor-rrr lungs clear abd soft,no distension, mild discomfort supraubic, mid epigastric, left flank ext no edema CBC, BMP 04/05/19 07:54 04/05/19 07:54 Microbiology 04/03/19 15:00 Urine - Urine Clean Catch Urine Culture - Preliminary 04/04/19 14:08 Urine For Antigen Detection Legionella Antigen - Final 04/04/19 14:08 Urine For Antigen Detection Streptococcus pneumoniae Antigen (M - Final Active Medications Acetaminophen (Tylenol -) 650 mg PO Q6H PRN PRN Reason: FEVER Last Admin: 04/05/19 11:13 Dose: 650 mg Amlodipine Besylate (Norvasc -) 5 mg PO DAILY [facility] Last Admin: 04/05/19 09:45 Dose: 5 mg Atorvastatin Calcium (Lipitor -) 80 mg PO HS [facility] Last Admin: 04/04/19 22:43 Dose: 80 mg Cilostazol (Pletal -) 100 mg PO BID [facility] Last Admin: 04/05/19 09:46 Dose: 100 mg Clopidogrel Bisulfate (Plavix -) 75 mg PO DAILY [facility] Last Admin: 04/05/19 09:45 Dose: 75 mg Finasteride (Proscar -) 5 mg PO DAILY [facility] Last Admin: 04/05/19 09:45 Dose: 5 mg Gabapentin (Neurontin -) 300 mg PO TID [facility] Last Admin: 04/05/19 06:55 Dose: 300 mg Guaifenesin (Robitussin -) 5 ml PO Q6H PRN PRN Reason: COUGH Last Admin: 04/04/19 04:36 Dose: 5 ml Heparin Sodium (Porcine) (Heparin -) 5,000 unit SQ TID [facility] Last Admin: 04/05/19 06:56 Dose: 5,000 unit Cefepime HCl 1 gm/ Dextrose 50 mls @ 100 mls/hr IVPB BID [facility]; Protocol Last Admin: 04/05/19 09:45 Dose: 100 mls/hr Insulin Aspart (Novolog Vial Sliding Scale -) 1 vial SQ ACHS [facility]; Protocol Last Admin: 04/05/19 11:23 Dose: Not Given Metoprolol Tartrate (Lopressor -) 50 mg PO BID [facility] Last Admin: 04/05/19 09:45 Dose: 50 mg Phenazopyridine HCl (Pyridium -) 100 mg PO TID [facility] Last Admin: 04/05/19 06:55 Dose: 100 mg Tamsulosin HCl (Flomax -) 0.4 mg PO DAILY@0830 [facility] Last Admin: 04/05/19 09:45 Dose: 0.4 mg Laboratory Tests 04/04/19 13:25 Hemoglobin A1c % 13.7 H reanl sonogram mild/moderate bilateral hydro large prostate, urinary retention imp/reccd pneumonia UTI continue cefepime f/u cultures f/u with urology Problem List - Problems (1) Pneumonia Code(s): J18.9 - PNEUMONIA, UNSPECIFIED ORGANISM Qualifiers: Pneumonia type: due to unspecified organism Laterality: unspecified laterality Lung location: unspecified part of lung Qualified Code(s): J18.9 - Pneumonia, unspecified organism (2) UTI (urinary tract infection) Code(s): N39.0 - URINARY TRACT INFECTION, SITE NOT SPECIFIED Qualifiers: Urinary tract infection type: site unspecified Hematuria presence: without hematuria Qualified Code(s): N39.0 - Urinary tract infection, site not specified (3) Renal insufficiency Code(s): N28.9 - DISORDER OF KIDNEY AND URETER, UNSPECIFIED
[2019-04-05 14:33] VITALS: BMI 19.3
--- NOTE | 2019-04-05 17:13 | PN ---
Physical Exam: 88 M h/o BPH, HTN, HLD, T2DM, Recurrent UTIs Presents complaining of 2 days of dysuria, abdominal pain/Suprapubic pain, cough with phlegm. Patient received 5 days of Levaquin for PNA, which he has failed. Admitted for UTI with urinary retention w/ b/l hydronephrosis on renal US and b/l PNA on chest CT. This morning patient urinating intermittently, still complaining of cough w/ thick white-yellow sputum. No fevers. VS otherwise stable. Vital Signs Period Temp Pulse Resp BP Sys/Riggs Pulse Ox Last 24 Hr 97.8 F-98.2 F 74-101 18-18 126-148/63-64 96 PE VS: 142/63, 81HR, 18RR GA elderly, AAox3, lying in bed, mild distress HEENT NC/AT, EOMI, no JVD, dry MM Chest coarse b/l BS, faint end expiratory wheezing, occasional productive cough CVS S1, S2+, RRR, no m/r/g Abd Soft, NT, ND, BS+ mild suprapubic tenderness, no CVA tenderness Ext NO LE edema Laboratory Results - last 24 hr 04/04/19 04/05/19 04/05/19 22:39 07:54 07:54 WBC 10.7 H RBC 3.76 L Hgb 11.9 Hct 34.4 L MCV 91.5 MCH 31.7 MCHC 34.6 RDW 13.3 Plt Count 498 H D MPV 6.7 L Absolute Neuts (auto) 9.1 H Neutrophils % 84.7 H Lymphocytes % 8.6 D Monocytes % 5.3 Eosinophils % 0.9 Basophils % 0.5 Nucleated RBC % 0 PT with INR INR Sodium 143 Potassium 3.6 Chloride 112 H Carbon Dioxide 22 Anion Gap 9 BUN 28.9 H Creatinine 1.8 H Est GFR (CKD-EPI)AfAm 38.64 Est GFR (CKD-EPI)NonAf 33.34 POC Glucometer 316 Random Glucose 33 L* Calcium 8.7 Total Bilirubin 0.4 AST 23 ALT 23 Alkaline Phosphatase 138 H Total Protein 7.6 Albumin 2.3 L 04/05/19 04/05/19 07:54 11:19 WBC RBC Hgb Hct MCV MCH MCHC RDW Plt Count MPV Absolute Neuts (auto) Neutrophils % Lymphocytes % Monocytes % Eosinophils % Basophils % Nucleated RBC % PT with INR 15.50 H INR 1.31 H Sodium Potassium Chloride Carbon Dioxide Anion Gap BUN Creatinine Est GFR (CKD-EPI)AfAm Est GFR (CKD-EPI)NonAf POC Glucometer 147 Random Glucose Calcium Total Bilirubin AST ALT Alkaline Phosphatase Total Protein Albumin Active Medications Generic Name Dose Route Start Last Admin Trade Name Freq PRN Reason Stop Dose Admin Acetaminophen 650 mg 04/03/19 19:54 04/05/19 11:13 Tylenol - PO 650 mg Q6H PRN Administration FEVER Amlodipine Besylate 5 mg 04/04/19 10:00 04/05/19 09:45 Norvasc - PO 5 mg DAILY [facility] Administration Atorvastatin Calcium 80 mg 04/04/19 22:00 04/04/19 22:43 Lipitor - PO 80 mg HS [facility] Administration Cilostazol 100 mg 04/04/19 10:00 04/05/19 09:46 Pletal - PO 100 mg BID [facility] Administration Clopidogrel Bisulfate 75 mg 04/04/19 10:00 04/05/19 09:45 Plavix - PO 75 mg DAILY [facility] Administration Finasteride 5 mg 04/04/19 10:00 04/05/19 09:45 Proscar - PO 5 mg DAILY [facility] Administration Gabapentin 300 mg 04/04/19 14:00 04/05/19 14:33 Neurontin - PO 300 mg TID [facility] Administration Guaifenesin 5 ml 04/04/19 04:27 04/04/19 04:36 Robitussin - PO 5 ml Q6H PRN Administration COUGH Heparin Sodium (Porcine) 5,000 unit 04/04/19 06:00 04/05/19 14:33 Heparin - SQ 5,000 unit TID [facility] Administration Cefepime HCl 1 gm/ Dextrose 50 mls @ 100 mls/hr 04/04/19 22:00 04/05/19 09:45 IVPB 100 mls/hr BID [facility] Administration Protocol Insulin Aspart 1 vial 04/04/19 11:00 04/05/19 11:23 Novolog Vial Sliding Scale - SQ Not Given ACHS [facility] Protocol Insulin Detemir 12 units 04/05/19 22:00 Levemir Vial SQ BID [facility] Metoprolol Tartrate 50 mg 04/04/19 10:00 04/05/19 09:45 Lopressor - PO 50 mg BID [facility] Administration Phenazopyridine HCl 100 mg 04/04/19 22:00 04/05/19 15:04 Pyridium - PO 100 mg TID [facility] Administration Tamsulosin HCl 0.4 mg 04/04/19 11:00 04/05/19 09:45 Flomax - PO 0.4 mg DAILY@0830 [facility] Administration ASSESSMENT/PLAN: 88 M BPH w/ LUTS, HTN, DM 2, admitted for b/l PNA with treatment failure with Levaquin, UTI with urinary retention. UTI place ortega catheter now, pt. endorses significant stranguria and LUTS, unsure of urinary output, in view of b/l hydro will place ortega until pt. evaluated by Urology Cont. Cefepime, follow urine cx, ortega to gravity Urology cs: Dr. Lomeli PNA failed Levaquin, still having productive cough, Chest CT showing b/l PNA Cont. Cefepime for PNA coverage, duonebs around the clock, NC O2 to achieve >90 % O2 sat Pulmonary toileting, chest PT, incentive spirometer HTN resume BP meds as tolerated HLD resume statin T2DM with hypoglycemia in AM reduce basal coverage by 50% and supplement with ISS as patient not tolerating diet well due to ill state monitor FS Q4H DVT ppx: Heparin SC Visit type - Emergency Visit Emergency Visit: Yes ED Registration Date: 04/03/19 Care time: The patient presented to the Emergency Department on the above date and was hospitalized for further evaluation of their emergent condition. - New Patient This patient is new to me today: Yes Date on this admission: 04/05/19 - Critical Care Critical Care patient: No - Discharge Referral Referred to [facility] Med [facility] No
--- NOTE | 2019-04-05 20:13 | CON.GU ---
Consult Consult Specialty:: recurrent uti Reason for Consultation:: recurrent uti with bilateral mild hydronephrosis with elevated creatinine to 1.8 - History of Present Illness Chief Complaint: recurrent uti/bph/mild bilateral hydronephrosis History of Present Illness: The patient is an 88 year old male with a history of HTN, HLD, DM, Recurrent UTIs who presents for evaluation of dysuria and abdominal pain. The patient currently has a ortega catheter. 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 - History Source History Provided By: Patient - Alcohol/Substance Use Hx Alcohol Use: No - Smoking History Smoking history: Never smoked Have you smoked in the past 12 months: No Home Medications - Allergies Allergies/Adverse Reactions: Allergies Allergy/AdvReac Type Severity Reaction Status Date / Time No Known Allergies Allergy Verified 12/16/18 21:20 - Home Medications Home Medications: Ambulatory Orders Amlodipine Besylate 5 mg PO DAILY 10/27/18 Atorvastatin Ca [Lipitor] 80 mg PO HS 10/27/18 Cilostazol 100 mg PO BID 10/27/18 Clopidogrel Bisulfate [Clopidogrel] 75 mg PO DAILY 10/27/18 Finasteride 5 mg PO DAILY 10/27/18 Gabapentin 300 mg PO TID 10/27/18 Insulin Detemir [Levemir Flextouch] 15 unit SQ AM 10/27/18 Tamsulosin HCl 0.4 mg PO BID 10/27/18 Metoprolol Tartrate 50 mg PO BID 10/28/18 Insulin Detemir [Levemir Flextouch] 25 unit SQ HS 04/04/19 Physical Exam- Vital Signs: Vital Signs Temperature 97.7 F 04/05/19 17:32 Pulse Rate 83 04/05/19 17:32 Respiratory Rate 20 04/05/19 17:32 Blood Pressure 117/57 L 04/05/19 17:32 O2 Sat by Pulse Oximetry (%) 96 04/04/19 21:00 Constitutional: Yes: No Distress, Calm Eyes: Yes: WNL, Conjunctiva Clear, EOM Intact HENT: Yes: WNL, Atraumatic, Normocephalic Neck: Yes: WNL, Supple, Trachea Midline Cardiovascular: Yes: Regular Rate and Rhythm Respiratory: Yes: Regular Gastrointestinal: Yes: Normal Bowel Sounds, Soft Renal/: Yes: WNL (patient with left lower back tenderness to palpation) Pelvis: Yes: Bladder Non Palpable, Bladder Palpable Testicles: Yes: WNL Scrotum: Yes: WNL Penis: Yes: WNL (ortega draining lightly blood tinged urine) Prostate Exam: Yes: Asymmetrical (enlargement noted) Musculoskeletal: Yes: Back Pain Integumentary: Yes: WNL Labs: CBC, BMP 04/05/19 07:54 04/05/19 07:54 Imaging - Results Ultrasound: Report Reviewed (mild hydronephrosis/no evidence of urinary retention) Assessment/Plan impression bph urinary retention uti renal insufficiency plan continue antibiotics ortega catheter may be removed as per the medical team and continue flomax as outpatient will follow up as outpatient for cystoscopy and to evaluate post void residual volume
[2019-04-05] MEDS ORDERED: ONDANSETRON 4 MG/2 ML VIAL IVPUSH ONE (20:52)
[2019-04-05] MEDS ORDERED: POLYETHYLENE GLYCOL 3350 119 GM BTL PO ONE (21:00)
[2019-04-05] MEDS ORDERED: ONDANSETRON 4 MG/2 ML VIAL ONE (21:36)
--- NOTE | 2019-04-05 21:48 | HOSP ---
Subjective - Review of Symptoms Events since last encounter: 88 year old female PMH HTN, HLD, DM, Recurrent UTIs who comes into the ED c/o dysuria and abdominal pain. In the ED, the patient was afebrile and hemodynamically stable. A CXR demonstrated a pneumonia. UA was indicative of UTI. Currently being treated. RN microblog at 20;48 complain of abd pain with vomited x1 undigested food. v/s : 1443/69, 98, 97.6. Upon exam abd soft, NT/ND, SB+, last BM 2 days ago. ordered to give zofran 4 mg IV push x1, and miralax 17 g in 1hr. GEN: Nad CV:s1/s2 resp: rales right side abd: soft, BS+ neuro: awake,alert A/P - zofran 4 mg x1 IVpush - miralax 17g x1 - monitor for further N/V Physical Examination Vital Signs: Vital Signs Temperature 97.6 F 04/05/19 20:25 Pulse Rate 98 H 04/05/19 20:25 Respiratory Rate 18 04/05/19 20:25 Blood Pressure 143/69 04/05/19 20:25 O2 Sat by Pulse Oximetry (%) 96 04/04/19 21:00 Labs: CBC, BMP 04/05/19 07:54 04/05/19 07:54
[2019-04-05] MEDS: INSULIN (LEVEMIR) 100 UNITS/ML UNITS SQ SCH (21:52)
[2019-04-05] MEDS: ATORVASTATIN CA 80 MG TABLET (FP) PO SCH (21:53)
[2019-04-05] MEDS: MAG HYDROX/AL HYDROX/SIMETH 30 ML UNIT-DOSE CUP PO SCH (22:56)
[2019-04-06] MEDS: MAG HYDROX/AL HYDROX/SIMETH 30 ML UNIT-DOSE CUP PO SCH (00:12)
[2019-04-06] MEDS ORDERED: MAG HYDROX/AL HYDROX/SIMETH 30 ML UNIT-DOSE CUP PO PRN (00:59)
[2019-04-06] MEDS: ACETAMINOPHEN 325 MG TABLET (FP) PO PRN ×2 (05:00→21:12)
[2019-04-06] MEDS: GABAPENTIN 300 MG CAPSULE (FP) PO SCH ×3 (05:01→21:11)
[2019-04-06] MEDS: HEPARIN NA (PORCINE) 5,000 UNITS/ML 1ML VIAL SQ SCH ×3 (05:01→21:10)
[2019-04-06] MEDS: PHENAZOPYRIDINE HCL 100 MG TABLET (FP) PO SCH ×3 (05:01→21:12)
[2019-04-06] MEDS: INSULIN (LEVEMIR) 100 UNITS/ML UNITS SQ SCH ×2 (06:07→21:20)
[2019-04-06] MEDS: INSULIN SLIDING SCALE (NOVOLOG) 1 VIAL SQ SCH ×4 (06:07→21:17)
--- NOTE | 2019-04-06 08:07 | PN ---
Progress Note, Physician Chief Complaint: c/o nausea, poor appetite. Anxious to be discharged History of Present Illness: The patient is an 88 yo m w/ PMH HTN, HLD, DM, Recurrent UTIs who comes into the ED c/o dysuria and abdominal pain. The history was collected with the aid of family at bedside. Patient states that he was diagnosed with an upper lobe pneumonia approx. 1 weeks ago and has been on daily Levaquin since then. Over the past 2 days, the patient describes gradually worsening lower abdominal pain and dysuria which is consistent with his episodes of UTI. This is accompanied with persistence of his cough despite 1 week of levaquin. patient denies fevers , chills, chest pain, nausea, vomiting, or changes with urination or bowel movements. - Current Medication List Current Medications: Active Medications Acetaminophen (Tylenol -) 650 mg PO Q6H PRN PRN Reason: FEVER Last Admin: 04/06/19 05:00 Dose: 650 mg Al Hydroxide/Mg Hydroxide (Mylanta Oral Suspension -) 30 ml PO Q6HPO PRN PRN Reason: NAUSEA AND/OR VOMITING Stop: 04/06/19 19:35 Last Admin: 04/06/19 05:10 Dose: 30 ml Amlodipine Besylate (Norvasc -) 5 mg PO DAILY [facility] Last Admin: 04/05/19 09:45 Dose: 5 mg Atorvastatin Calcium (Lipitor -) 80 mg PO HS [facility] Last Admin: 04/05/19 21:53 Dose: Not Given Cilostazol (Pletal -) 100 mg PO BID [facility] Last Admin: 04/05/19 21:55 Dose: Not Given Clopidogrel Bisulfate (Plavix -) 75 mg PO DAILY [facility] Last Admin: 04/05/19 09:45 Dose: 75 mg Finasteride (Proscar -) 5 mg PO DAILY [facility] Last Admin: 04/05/19 09:45 Dose: 5 mg Gabapentin (Neurontin -) 300 mg PO TID [facility] Last Admin: 04/06/19 05:01 Dose: 300 mg Guaifenesin (Robitussin -) 5 ml PO Q6H PRN PRN Reason: COUGH Last Admin: 04/04/19 04:36 Dose: 5 ml Heparin Sodium (Porcine) (Heparin -) 5,000 unit SQ TID [facility] Last Admin: 04/06/19 05:01 Dose: 5,000 unit Cefepime HCl 1 gm/ Dextrose 50 mls @ 100 mls/hr IVPB BID [facility]; Protocol Last Admin: 04/05/19 21:49 Dose: 100 mls/hr Insulin Aspart (Novolog Vial Sliding Scale -) 1 vial SQ ACHS [facility]; Protocol Last Admin: 04/06/19 06:07 Dose: 4 units Insulin Detemir (Levemir Vial) 12 units SQ BID@0700,2200 [facility] Last Admin: 04/06/19 06:07 Dose: 12 units Metoprolol Tartrate (Lopressor -) 50 mg PO BID [facility] Last Admin: 04/05/19 21:54 Dose: Not Given Phenazopyridine HCl (Pyridium -) 100 mg PO TID [facility] Last Admin: 04/06/19 05:01 Dose: 100 mg Tamsulosin HCl (Flomax -) 0.4 mg PO DAILY@0830 [facility] Last Admin: 04/05/19 09:45 Dose: 0.4 mg - Objective Vital Signs: Vital Signs Temperature 98.1 F 04/06/19 06:11 Pulse Rate 100 H 04/06/19 06:11 Respiratory Rate 04/06/19 06:11 Blood Pressure 155/75 04/06/19 06:11 O2 Sat by Pulse Oximetry (%) 96 04/04/19 21:00 Constitutional: Yes: Well Nourished, No Distress, Calm Eyes: Yes: WNL, Conjunctiva Clear HENT: Yes: WNL, Atraumatic, Normocephalic Neck: Yes: WNL, Supple, Trachea Midline Cardiovascular: Yes: WNL, Regular Rate and Rhythm Respiratory: Yes: WNL, Regular, CTA Bilaterally Gastrointestinal: Yes: Normal Bowel Sounds, Soft, Other (nausea) ...Rectal Exam: Yes: Deferred Genitourinary: Yes: Ortega Present (urine clear) Breast(s): Yes: WNL Musculoskeletal: Yes: WNL Extremities: Yes: WNL Edema: No Peripheral Pulses WNL: Yes Peripheral Pulses: Left Radial: 2+, Right Radial: 2+, Left Doralis Pedis: 2+, Right Dorsalis Pedis: 2+, Left Femoral: 2+, Right Femoral: 2+ Integumentary: Yes: WNL Neurological: Yes: WNL, Alert, Oriented ...Motor Strength: WNL Psychiatric: Yes: WNL Labs: CBC, BMP 04/05/19 07:54 04/05/19 07:54 INR, PTT INR 1.31 (0.83-1.09) H 04/05/19 07:54 - ....Imaging Ultrasound: Report Reviewed (Renal: mild to mod BL hydro. Thockened bladder. Enlarged prostate) Problem List - Problems (1) HLD (hyperlipidemia) Assessment/Plan: low fat/chol diet c/w atorvastatin Code(s): E78.5 - HYPERLIPIDEMIA, UNSPECIFIED (2) Prophylactic measure Assessment/Plan: FEN Fluids: no IVF presently, if PO intake remains poor will start IVF Electrolytes: replete as indicated Nutrition: low fat/chol diet DVT prophylaxis: heparin sq oob, ambulation Dispo: continues to require inpatient care. Full code discharge planning Code(s): Z29.9 - ENCOUNTER FOR PROPHYLACTIC MEASURES, UNSPECIFIED (3) Pneumonia Assessment/Plan: R side infiltrate c/w cefipime duo nebs prn appreciate ID consultation Code(s): J18.9 - PNEUMONIA, UNSPECIFIED ORGANISM Qualifiers: Pneumonia type: due to unspecified organism Laterality: unspecified laterality Lung location: unspecified part of lung Qualified Code(s): J18.9 - Pneumonia, unspecified organism (4) UTI (urinary tract infection) Assessment/Plan: urine Cx with yeast like organism Urine For Antigen Detection Streptococcus pneumoniae Antigen c/w abx urinary retention requiring ortega placement c/w flomax will assess for ortega removal in am Code(s): N39.0 - URINARY TRACT INFECTION, SITE NOT SPECIFIED Qualifiers: Urinary tract infection type: site unspecified Hematuria presence: without hematuria Qualified Code(s): N39.0 - Urinary tract infection, site not specified (5) Diabetes Assessment/Plan: BGM AC/HS with novolog sliding scale c/w levemir diabetic diet Code(s): E11.9 - TYPE 2 DIABETES MELLITUS WITHOUT COMPLICATIONS (6) HTN (hypertension) Assessment/Plan: c/w norvasc Code(s): I10 - ESSENTIAL (PRIMARY) HYPERTENSION Visit type - Emergency Visit Emergency Visit: Yes ED Registration Date: 04/03/19 Care time: The patient presented to the Emergency Department on the above date and was hospitalized for further evaluation of their emergent condition. - New Patient This patient is new to me today: Yes Date on this admission: 04/06/19 - Critical Care Critical Care patient: No - Discharge Referral Referred to [facility] No
[2019-04-06] MEDS ORDERED: CEFEPIME HCL 1 GM VIAL (RESTRICTED TO ID) ONE ×2 (09:50→21:02)
[2019-04-06] MEDS ORDERED: DEXTROSE 5%-WATER - 50 ML IVPB ONE ×2 (09:50→21:02)
[2019-04-06] MEDS ORDERED: PT OWN MED DRAWER 7, Y5N ONE (09:51)
[2019-04-06] MEDS: FINASTERIDE 5 MG TABLET (FP) PO SCH (10:08)
[2019-04-06] MEDS: METOPROLOL TARTRATE 50 MG TABLET (FP) PO SCH ×2 (10:08→21:11)
[2019-04-06] MEDS: amLODIPine BESYLATE 5 MG TABLET (FP) PO SCH (10:09)
[2019-04-06] MEDS: CEFEPIME 1 GM in DEXTROSE 5%-WATER - 50 ML IVPB SCH ×2 (10:09→21:10)
[2019-04-06] MEDS: CILOSTAZOL 100 MG TABLET PO SCH ×2 (10:09→21:11)
[2019-04-06] MEDS: TAMSULOSIN HCL 0.4 MG CAP PO SCH (10:09)
[2019-04-06] MEDS: CLOPIDOGREL BISULFATE 75 MG TABLET (FP) PO SCH (10:09)
[2019-04-06 10:29] LABS: BASO % 0.4 % (0-2.0); EOS % 0.4 % (0-4.5); HEMATOCRIT 32.8 % (35.4-49); HEMOGLOBIN 11.1 GM/dL (11.7-16.9); MCH 31.5 pg (25.7-33.7); MEAN CELL VOLUME 92.6 fl (80-96); MEAN PLT VOLUME 6.7 fl (7.5-11.1); MONO % 7.3 % (3.8-10.2); NEUT % 80.9 % (42.8-82.8); PLATELET COUNT 439 K/MM3 (134-434); RBC 3.54 M/mm3 (4.00-5.60); RDW 13.3 % (11.9-15.9); WHITE BLOOD COUNT 8.5 K/mm3 (4.0-10.0)
[2019-04-06 10:55] LABS: ALBUMIN 2.2 g/dl (3.4-5.0); BILIRUBIN,TOTAL 0.3 mg/dL (0.2-1); BLOOD UREA NITROGEN 20.8 mg/dL (7-18); CALCIUM 8.3 mg/dL (8.5-10.1); CREATININE 1.7 mg/dL (0.55-1.3); MAGNESIUM 1.9 mg/dL (1.8-2.4); POTASSIUM 3.9 mmol/L (3.5-5.1); TOT PROT 7.5 g/dl (6.4-8.2)
[2019-04-06] MEDS: ATORVASTATIN CA 80 MG TABLET (FP) PO SCH (21:12)
[2019-04-07] MEDS: GABAPENTIN 300 MG CAPSULE (FP) PO SCH ×2 (06:21→14:03)
[2019-04-07] MEDS: PHENAZOPYRIDINE HCL 100 MG TABLET (FP) PO SCH ×2 (06:21→14:03)
[2019-04-07] MEDS: HEPARIN NA (PORCINE) 5,000 UNITS/ML 1ML VIAL SQ SCH ×2 (06:22→14:03)
[2019-04-07] MEDS: INSULIN SLIDING SCALE (NOVOLOG) 1 VIAL SQ SCH ×2 (06:33→12:00)
[2019-04-07] MEDS: INSULIN (LEVEMIR) 100 UNITS/ML UNITS SQ SCH (06:33)
[2019-04-07] MEDS ORDERED: DEXTROSE 50%-WATER 25 GM/50 ML DISP.SYRIN IVPUSH ONE (06:46)
[2019-04-07] MEDS ORDERED: INSULIN (LEVEMIR) 100 UNITS/ML UNITS SQ SCH (06:47)
[2019-04-07] MEDS ORDERED: DEXTROSE 50%-WATER 25 GM/50 ML DISP.SYRIN ONE (06:54)
[2019-04-07 07:59] LABS: BASO % 0.7 % (0-2.0); EOS % 2.7 % (0-4.5); HEMATOCRIT 31.8 % (35.4-49); HEMOGLOBIN 10.9 GM/dL (11.7-16.9); LYMPH % 8.7 % (8-40); MCH 31.4 pg (25.7-33.7); MCHC 34.2 g/dl (32.0-35.9); MEAN CELL VOLUME 91.6 fl (80-96); MEAN PLT VOLUME 6.6 fl (7.5-11.1); MONO % 7.8 % (3.8-10.2); NEUT % 80.1 % (42.8-82.8); PLATELET COUNT 369 K/MM3 (134-434); RBC 3.47 M/mm3 (4.00-5.60); RDW 13.2 % (11.9-15.9); WHITE BLOOD COUNT 7.3 K/mm3 (4.0-10.0)
--- NOTE | 2019-04-07 08:31 | PN ---
Progress Note, Physician Chief Complaint: Lares removed, voided. No further nausea/vomiting Anxious to go home History of Present Illness: The patient is an 88 yo m w/ PMH HTN, HLD, DM, Recurrent UTIs who comes into the ED c/o dysuria and abdominal pain. The history was collected with the aid of family at bedside. Patient states that he was diagnosed with an upper lobe pneumonia approx. 1 weeks ago and has been on daily Levaquin since then. Over the past 2 days, the patient describes gradually worsening lower abdominal pain and dysuria which is consistent with his episodes of UTI. This is accompanied with persistence of his cough despite 1 week of levaquin. patient denies fevers , chills, chest pain, nausea, vomiting, or changes with urination or bowel movements. - Current Medication List Current Medications: Active Medications Acetaminophen (Tylenol -) 650 mg PO Q6H PRN PRN Reason: FEVER Last Admin: 04/06/19 21:12 Dose: 650 mg Amlodipine Besylate (Norvasc -) 5 mg PO DAILY [facility] Last Admin: 04/06/19 10:09 Dose: 5 mg Atorvastatin Calcium (Lipitor -) 80 mg PO HS [facility] Last Admin: 04/06/19 21:12 Dose: 80 mg Cilostazol (Pletal -) 100 mg PO BID [facility] Last Admin: 04/06/19 21:11 Dose: 100 mg Clopidogrel Bisulfate (Plavix -) 75 mg PO DAILY [facility] Last Admin: 04/06/19 10:09 Dose: 75 mg Finasteride (Proscar -) 5 mg PO DAILY [facility] Last Admin: 04/06/19 10:08 Dose: 5 mg Gabapentin (Neurontin -) 300 mg PO TID [facility] Last Admin: 04/07/19 06:21 Dose: 300 mg Guaifenesin (Robitussin -) 5 ml PO Q6H PRN PRN Reason: COUGH Last Admin: 04/04/19 04:36 Dose: 5 ml Heparin Sodium (Porcine) (Heparin -) 5,000 unit SQ TID [facility] Last Admin: 04/07/19 06:22 Dose: 5,000 unit Cefepime HCl 1 gm/ Dextrose 50 mls @ 100 mls/hr IVPB BID [facility]; Protocol Last Admin: 04/06/19 21:10 Dose: 100 mls/hr Insulin Aspart (Novolog Vial Sliding Scale -) 1 vial SQ ACHS [facility]; Protocol Last Admin: 04/07/19 06:33 Dose: Not Given Insulin Detemir (Levemir Vial) 9 units SQ BID@0700,2200 [facility] Last Admin: 04/07/19 07:44 Dose: Not Given Metoprolol Tartrate (Lopressor -) 50 mg PO BID [facility] Last Admin: 04/06/19 21:11 Dose: 50 mg Phenazopyridine HCl (Pyridium -) 100 mg PO TID [facility] Last Admin: 04/07/19 06:21 Dose: 100 mg Tamsulosin HCl (Flomax -) 0.4 mg PO DAILY@0830 [facility] Last Admin: 04/06/19 10:09 Dose: 0.4 mg - Objective Vital Signs: Vital Signs Temperature 97.7 F 04/07/19 06:00 Pulse Rate 75 04/07/19 06:00 Respiratory Rate 18 04/07/19 06:00 Blood Pressure 134/63 04/07/19 06:00 O2 Sat by Pulse Oximetry (%) 98 04/06/19 21:00 Additional Findings/Remarks: Constitutional: Yes: Well Nourished, No Distress, Calm Eyes: Yes: WNL, Conjunctiva Clear HENT: Yes: WNL, Atraumatic, Normocephalic Neck: Yes: WNL, Supple, Trachea Midline Cardiovascular: Yes: WNL, Regular Rate and Rhythm Respiratory: Yes: WNL, Regular, CTA Bilaterally Gastrointestinal: Yes: Normal Bowel Sounds, Soft, Other (nausea) ...Rectal Exam: Yes: Deferred Genitourinary: Yes: Lares Present (urine clear) Breast(s): Yes: WNL Musculoskeletal: Yes: WNL Extremities: Yes: WNL Edema: No Peripheral Pulses WNL: Yes Peripheral Pulses: Left Radial: 2+, Right Radial: 2+, Left Doralis Pedis: 2+, Right Dorsalis Pedis: 2+, Left Femoral: 2+, Right Femoral: 2+ Integumentary: Yes: WNL Neurological: Yes: WNL, Alert, Oriented ...Motor Strength: WNL Psychiatric: Yes: WNL Labs: CBC, BMP 04/07/19 07:20 INR, PTT INR 1.31 (0.83-1.09) H 04/05/19 07:54 Problem List - Problems (1) HLD (hyperlipidemia) Code(s): E78.5 - HYPERLIPIDEMIA, UNSPECIFIED (2) Prophylactic measure Code(s): Z29.9 - ENCOUNTER FOR PROPHYLACTIC MEASURES, UNSPECIFIED (3) Pneumonia Code(s): J18.9 - PNEUMONIA, UNSPECIFIED ORGANISM Qualifiers: Pneumonia type: due to unspecified organism Laterality: unspecified laterality Lung location: unspecified part of lung Qualified Code(s): J18.9 - Pneumonia, unspecified organism (4) UTI (urinary tract infection) Code(s): N39.0 - URINARY TRACT INFECTION, SITE NOT SPECIFIED Qualifiers: Urinary tract infection type: site unspecified Hematuria presence: without hematuria Qualified Code(s): N39.0 - Urinary tract infection, site not specified (5) Diabetes Code(s): E11.9 - TYPE 2 DIABETES MELLITUS WITHOUT COMPLICATIONS (6) HTN (hypertension) Code(s): I10 - ESSENTIAL (PRIMARY) HYPERTENSION
[2019-04-07 08:32] LABS: BILIRUBIN,TOTAL 0.6 mg/dL (0.2-1); BLOOD UREA NITROGEN 22.4 mg/dL (7-18); CALCIUM 8.4 mg/dL (8.5-10.1); CREATININE 1.6 mg/dL (0.55-1.3); TOT PROT 6.8 g/dl (6.4-8.2)
[2019-04-07] MEDS: TAMSULOSIN HCL 0.4 MG CAP PO SCH (09:14)
[2019-04-07] MEDS ORDERED: PT OWN MED DRAWER 7, Y5N ONE (10:21)
[2019-04-07] MEDS ORDERED: CEFEPIME HCL 1 GM VIAL (RESTRICTED TO ID) ONE (10:22)
[2019-04-07] MEDS ORDERED: DEXTROSE 5%-WATER - 50 ML IVPB ONE (10:22)
[2019-04-07] MEDS: CEFEPIME 1 GM in DEXTROSE 5%-WATER - 50 ML IVPB SCH (10:34)
[2019-04-07] MEDS: CLOPIDOGREL BISULFATE 75 MG TABLET (FP) PO SCH (10:34)
[2019-04-07] MEDS: CILOSTAZOL 100 MG TABLET PO SCH (10:34)
[2019-04-07] MEDS: amLODIPine BESYLATE 5 MG TABLET (FP) PO SCH (10:34)
[2019-04-07] MEDS: METOPROLOL TARTRATE 50 MG TABLET (FP) PO SCH (10:34)
[2019-04-07] MEDS: FINASTERIDE 5 MG TABLET (FP) PO SCH (10:34)
[2019-04-07] MEDS: ACETAMINOPHEN 325 MG TABLET (FP) PO PRN (10:34)
[2019-04-07] MEDS ORDERED: INSULIN (NOVOLOG) ASPART 100 UNITS/ML 10ML VIAL ONE (11:56)
--- NOTE | 2019-04-07 13:15 | PN ---
Progress Note (short form) - Note Progress Note: cough improved less urinary discomfort Vital Signs Period Temp Pulse Resp BP Sys/Riggs Pulse Ox Last 24 Hr 97.7 F-98.1 F 75-89 18-20 122-143/56-70 98 cor-rrr lungs decreased bs at bases abd soft,nt no suprapubic pain ext no edema CBC, BMP 04/07/19 07:20 04/07/19 07:20 Microbiology 04/06/19 09:22 Blood - Peripheral Venous Blood Culture - Preliminary NO GROWTH OBTAINED AFTER 24 HOURS, INCUBATION TO CONTINUE FOR 4 DAYS. 04/06/19 09:22 Blood - Peripheral Venous Blood Culture - Preliminary NO GROWTH OBTAINED AFTER 24 HOURS, INCUBATION TO CONTINUE FOR 4 DAYS. 04/03/19 15:00 Urine - Urine Clean Catch Urine Culture - Final Yeast Like Organism 04/04/19 14:08 Urine For Antigen Detection Legionella Antigen - Final 04/04/19 14:08 Urine For Antigen Detection Streptococcus pneumoniae Antigen (M - Final Current Medications Acetaminophen (Tylenol -) 650 mg PO Q6H PRN PRN Reason: FEVER Last Admin: 04/07/19 10:34 Dose: 650 mg Amlodipine Besylate (Norvasc -) 5 mg PO DAILY [facility] Last Admin: 04/07/19 10:34 Dose: 5 mg Atorvastatin Calcium (Lipitor -) 80 mg PO HS [facility] Last Admin: 04/06/19 21:12 Dose: 80 mg Cilostazol (Pletal -) 100 mg PO BID [facility] Last Admin: 04/07/19 10:34 Dose: 100 mg Clopidogrel Bisulfate (Plavix -) 75 mg PO DAILY [facility] Last Admin: 04/07/19 10:34 Dose: 75 mg Finasteride (Proscar -) 5 mg PO DAILY [facility] Last Admin: 04/07/19 10:34 Dose: 5 mg Gabapentin (Neurontin -) 300 mg PO TID [facility] Last Admin: 04/07/19 06:21 Dose: 300 mg Guaifenesin (Robitussin -) 5 ml PO Q6H PRN PRN Reason: COUGH Last Admin: 04/04/19 04:36 Dose: 5 ml Heparin Sodium (Porcine) (Heparin -) 5,000 unit SQ TID [facility] Last Admin: 04/07/19 06:22 Dose: 5,000 unit Cefepime HCl 1 gm/ Dextrose 50 mls @ 100 mls/hr IVPB BID [facility]; Protocol Last Admin: 04/07/19 10:34 Dose: 100 mls/hr Insulin Aspart (Novolog Vial Sliding Scale -) 1 vial SQ ACHS [facility]; Protocol Last Admin: 04/07/19 12:00 Dose: 6 units Insulin Detemir (Levemir Vial) 9 units SQ BID@0700,2200 [facility] Last Admin: 04/07/19 07:44 Dose: Not Given Metoprolol Tartrate (Lopressor -) 50 mg PO BID [facility] Last Admin: 04/07/19 10:34 Dose: 50 mg Phenazopyridine HCl (Pyridium -) 100 mg PO TID [facility] Last Admin: 04/07/19 06:21 Dose: 100 mg Tamsulosin HCl (Flomax -) 0.4 mg PO DAILY@0830 [facility] Last Admin: 04/07/19 09:14 Dose: 0.4 mg Laboratory Tests 04/04/19 13:25 Hemoglobin A1c % 13.7 H reanl sonogram mild/moderate bilateral hydro large prostate, urinary retention imp/reccd pneumonia UTI day #4 cefepime improved can switch to ceftin to complete 10 days-500 mg po bid Problem List - Problems (1) Pneumonia Code(s): J18.9 - PNEUMONIA, UNSPECIFIED ORGANISM Qualifiers: Pneumonia type: due to unspecified organism Laterality: unspecified laterality Lung location: unspecified part of lung Qualified Code(s): J18.9 - Pneumonia, unspecified organism (2) UTI (urinary tract infection) Code(s): N39.0 - URINARY TRACT INFECTION, SITE NOT SPECIFIED Qualifiers: Urinary tract infection type: site unspecified Hematuria presence: without hematuria Qualified Code(s): N39.0 - Urinary tract infection, site not specified (3) Renal insufficiency Code(s): N28.9 - DISORDER OF KIDNEY AND URETER, UNSPECIFIED
--- NOTE | 2019-04-07 13:17 | DS ---
Physical Exam: SUBJECTIVE: Patient seen and examined medically stable for discharge home with no services OBJECTIVE: Vital Signs Period Temp Pulse Resp BP Sys/Riggs Pulse Ox Last 24 Hr 97.7 F-98.1 F 75-89 18-20 122-143/56-70 98 PHYSICAL EXAM Constitutional: Yes: Well Nourished, No Distress, Calm Eyes: Yes: WNL, Conjunctiva Clear HENT: Yes: WNL, Atraumatic, Normocephalic Neck: Yes: WNL, Supple, Trachea Midline Cardiovascular: Yes: WNL, Regular Rate and Rhythm Respiratory: Yes: WNL, Regular, CTA Bilaterally Gastrointestinal: Yes: Normal Bowel Sounds, Soft, Other (nausea) ...Rectal Exam: Yes: Deferred Genitourinary: Yes: Ortega Present (urine clear) Breast(s): Yes: WNL Musculoskeletal: Yes: WNL Extremities: Yes: WNL Edema: No Peripheral Pulses WNL: Yes Peripheral Pulses: Left Radial: 2+, Right Radial: 2+, Left Doralis Pedis: 2+, Right Dorsalis Pedis: 2+, Left Femoral: 2+, Right Femoral: 2+ Integumentary: Yes: WNL Neurological: Yes: WNL, Alert, Oriented ...Motor Strength: WNL Psychiatric: Yes: WNL LABS Laboratory Results - last 24 hr 04/06/19 04/06/19 04/07/19 17:46 21:16 06:26 WBC RBC Hgb Hct MCV MCH MCHC RDW Plt Count MPV Absolute Neuts (auto) Neutrophils % Lymphocytes % Monocytes % Eosinophils % Basophils % Nucleated RBC % Sodium Potassium Chloride Carbon Dioxide Anion Gap BUN Creatinine Est GFR (CKD-EPI)AfAm Est GFR (CKD-EPI)NonAf POC Glucometer 112 335 37 Random Glucose Calcium Total Bilirubin AST ALT Alkaline Phosphatase Total Protein Albumin 04/07/19 04/07/19 04/07/19 07:20 07:20 11:59 WBC 7.3 RBC 3.47 L Hgb 10.9 L Hct 31.8 L MCV 91.6 MCH 31.4 MCHC 34.2 RDW 13.2 Plt Count 369 MPV 6.6 L Absolute Neuts (auto) 5.8 Neutrophils % 80.1 Lymphocytes % 8.7 D Monocytes % 7.8 Eosinophils % 2.7 D Basophils % 0.7 Nucleated RBC % 0 Sodium 136 Potassium 4.0 Chloride 106 Carbon Dioxide 24 Anion Gap 5 L BUN 22.4 H Creatinine 1.6 H Est GFR (CKD-EPI)AfAm 44.55 Est GFR (CKD-EPI)NonAf 38.44 POC Glucometer 288 Random Glucose 248 H Calcium 8.4 L Total Bilirubin 0.6 AST 23 ALT 20 Alkaline Phosphatase 123 H Total Protein 6.8 Albumin 2.0 L HOSPITAL COURSE: Date of Admission:04/03/19 Date of Discharge: 04/07/19 Problem List - Problems (1) HLD (hyperlipidemia) Assessment/Plan: low fat/chol diet c/w atorvastatin Code(s): E78.5 - HYPERLIPIDEMIA, UNSPECIFIED (2) Prophylactic measure Assessment/Plan: FEN Fluids: adequate PO intake Electrolytes: stable Nutrition: low fat/chol diet Dispo: medicaly stable to discharge to home with no services Code(s): Z29.9 - ENCOUNTER FOR PROPHYLACTIC MEASURES, UNSPECIFIED (3) Pneumonia Assessment/Plan: R side infiltrate on CXR. Much improved. Off O2 therapy completed course of cefipime can switch to ceftin to complete 10 days-500 mg po bid IH bronchodilators as needed Followed by Pulmonary and ID while in patient Code(s): J18.9 - PNEUMONIA, UNSPECIFIED ORGANISM Qualifiers: Pneumonia type: due to unspecified organism Laterality: unspecified laterality Lung location: unspecified part of lung Qualified Code(s): J18.9 - Pneumonia, unspecified organism (4) UTI (urinary tract infection) Assessment/Plan: urine Cx with yeast like organism c/w ceftin Urine For Antigen Detection Streptococcus pneumoniae Antigen urinary retention requiring ortega placement. DC'd and pt voided freely c/w flomax at home Code(s): N39.0 - URINARY TRACT INFECTION, SITE NOT SPECIFIED Qualifiers: Urinary tract infection type: site unspecified Hematuria presence: without hematuria Qualified Code(s): N39.0 - Urinary tract infection, site not specified (5) Diabetes Assessment/Plan: BGM AC/HS with novolog sliding scale c/w levemir at home diabetic diet Code(s): E11.9 - TYPE 2 DIABETES MELLITUS WITHOUT COMPLICATIONS (6) HTN (hypertension) Assessment/Plan: c/w norvasc Code(s): I10 - ESSENTIAL (PRIMARY) HYPERTENSION medically stable for discharge home with no services Minutes to complete discharge: 45 Discharge Summary Problems reviewed: Yes Reason For Visit: URINARY TRACT INFECTION, PNEUMONIA Current Active Problems HLD (hyperlipidemia) (Acute) Pneumonia (Acute) Prophylactic measure (Acute) Renal insufficiency (Acute) UTI (urinary tract infection) (Acute) Hospital Course: HOSPITAL COURSE: Date of Admission:04/03/19 Date of Discharge: 04/07/19 Problem List - Problems (1) HLD (hyperlipidemia) Assessment/Plan: low fat/chol diet c/w atorvastatin Code(s): E78.5 - HYPERLIPIDEMIA, UNSPECIFIED (2) Prophylactic measure Assessment/Plan: FEN Fluids: adequate PO intake Electrolytes: stable Nutrition: low fat/chol diet Dispo: medicaly stable to discharge to home with no services Code(s): Z29.9 - ENCOUNTER FOR PROPHYLACTIC MEASURES, UNSPECIFIED (3) Pneumonia Assessment/Plan: R side infiltrate on CXR. Much improved. Off O2 therapy completed course of cefipime can switch to ceftin to complete 10 days-500 mg po bid IH bronchodilators as needed Followed by Pulmonary and ID while in patient Code(s): J18.9 - PNEUMONIA, UNSPECIFIED ORGANISM Qualifiers: Pneumonia type: due to unspecified organism Laterality: unspecified laterality Lung location: unspecified part of lung Qualified Code(s): J18.9 - Pneumonia, unspecified organism (4) UTI (urinary tract infection) Assessment/Plan: urine Cx with yeast like organism c/w ceftin Urine For Antigen Detection Streptococcus pneumoniae Antigen urinary retention requiring ortega placement. DC'd and pt voided freely c/w flomax at home Code(s): N39.0 - URINARY TRACT INFECTION, SITE NOT SPECIFIED Qualifiers: Urinary tract infection type: site unspecified Hematuria presence: without hematuria Qualified Code(s): N39.0 - Urinary tract infection, site not specified (5) Diabetes Assessment/Plan: BGM AC/HS with novolog sliding scale c/w levemir at home diabetic diet Code(s): E11.9 - TYPE 2 DIABETES MELLITUS WITHOUT COMPLICATIONS (6) HTN (hypertension) Assessment/Plan: c/w norvasc Code(s): I10 - ESSENTIAL (PRIMARY) HYPERTENSION medically stable for discharge home with no services Condition: Improved - Instructions Diet, Activity, Other Instructions: DISCHARGE YOUR VISIT You came to the hospital because had trouble urinating/pain and abdominal pain. You were found to have a urinary tract infection and a pneumonia. You were seen by a Urologist and a catheter was placed. Ypu were started on a medication called FLOMAX to help with urinary retention and the catheter was removed. MEDICATIONS Please continue to take your home medications as prescribed. There was some changes New Medications Flomax once a day Ceftin twice a day for 10 days DIET Continue your home diet: Diabetic ADDITIONAL CARE Please make an appointment to see your primary care provider, [address] Alvarez Johnson for follow up after you complete the antibiotics ADDITIONAL INFORMATION Please call 911 or come directly to the emergency department if you experience unusual headache, vision change, shortness of breath, chest pain, numbness, tingling, loss of alertness/awareness, loss of function, unusual bleeding or any alarming symptoms. Thank you for allowing me to care for you. Rolo Genao, [facility], [facility] [phone] Referrals: Andrew Lui MD [Staff Physician] - 2 Weeks (call for appointment) Iván Rodriguez MD [Primary Care Provider] - 2 Weeks (call for appoinment) Disposition: HOME - Home Medications Comprehensive Discharge Medication List: Ambulatory Orders Amlodipine Besylate 5 mg PO DAILY 10/27/18 Atorvastatin Ca [Lipitor] 80 mg PO HS 10/27/18 Cilostazol 100 mg PO BID 10/27/18 Clopidogrel Bisulfate [Clopidogrel] 75 mg PO DAILY 10/27/18 Finasteride 5 mg PO DAILY 10/27/18 Gabapentin 300 mg PO TID 10/27/18 Insulin Detemir [Levemir Flextouch] 15 unit SQ AM 10/27/18 Tamsulosin HCl 0.4 mg PO BID 10/27/18 Metoprolol Tartrate 50 mg PO BID 10/28/18 Insulin Detemir [Levemir Flextouch] 25 unit SQ HS 04/04/19 Problem List - Problems (1) HLD (hyperlipidemia) Code(s): E78.5 - HYPERLIPIDEMIA, UNSPECIFIED (2) Prophylactic measure Code(s): Z29.9 - ENCOUNTER FOR PROPHYLACTIC MEASURES, UNSPECIFIED (3) Pneumonia Code(s): J18.9 - PNEUMONIA, UNSPECIFIED ORGANISM Qualifiers: Pneumonia type: due to unspecified organism Laterality: unspecified laterality Lung location: unspecified part of lung Qualified Code(s): J18.9 - Pneumonia, unspecified organism (4) UTI (urinary tract infection) Code(s): N39.0 - URINARY TRACT INFECTION, SITE NOT SPECIFIED Qualifiers: Urinary tract infection type: site unspecified Hematuria presence: without hematuria Qualified Code(s): N39.0 - Urinary tract infection, site not specified (5) Diabetes Code(s): E11.9 - TYPE 2 DIABETES MELLITUS WITHOUT COMPLICATIONS (6) HTN (hypertension) Code(s): I10 - ESSENTIAL (PRIMARY) HYPERTENSION This patient is new to me today: No Emergency Visit: Yes ED Registration Date: 04/03/19 Care time: The patient presented to the Emergency Department on the above date and was hospitalized for further evaluation of their emergent condition. Critical Care patient: No - Discharge Referral Referred to [facility] No
[2019-04-07 14:26] VITALS: BP 106/52; PULSE 77; TEMP 97.9
== END 2019-04-07 14:59 | disposition home or self-care (01) | DRG 689 ==
LOC: JER 13:20 → JERBED 18:16 → J8W 22:53
PROVIDERS: ADMIT Internal Medicine; ATTEND Nurse Practitioner Acute Care
DX: N39.0 Urinary tract infection, site not specified (principal); J18.9 Pneumonia, unspecified organism; I31.3 Pericardial effusion (noninflammatory); N40.0 Benign prostatic hyperplasia without lower urinary tract symptoms; N13.30 Unspecified hydronephrosis; R33.9 Retention of urine, unspecified; E78.5 Hyperlipidemia, unspecified; E11.9 Type 2 diabetes mellitus without complications; I10 Essential (primary) hypertension; E88.09 Other disorders of plasma-protein metabolism, not elsewhere classified; D64.9 Anemia, unspecified; D47.3 Essential (hemorrhagic) thrombocythemia
CPT/HCPCS: 36415; 71045-TC-FY; 71250-TC; 76775-TC; 76856-TC; 80053; 81003; 82962; 83036; 83690; 83735; 84100; 85025; 85027; 85610; 87040; 87086; 87804; 87899; 93005; 93010; 94640; 97116-GP; 97161-GP; 99283-25; J0131; J1644